=== PATIENT | male | born 1930 | race Two or more races ===

== ENCOUNTER 2017-03-14 21:15 | Inpatient (IN) | payer MEDICARE ==
[~2017-03-14] VITALS: Ht 172.7 cm; Wt 75.7 kg
--- NOTE | 2017-03-14 21:00 | NUR ---
ADMITTED THIS 86 YEARS OLD MALE FROM [facility] PATIENT WAS PLACE ON 5150 HOLD DUE TO GRAVELY DISABLE, CONFUSED , UNABLE TO TAKE CARE FOR HIMSELF. RICARDO ANY PAIN OR DISCOMFORT AT THIS TIME REFUSED TO SIGN THE CONSENT PAPER, ADVISEMENT EXPLAIN AND GIVE TO THE PATIENT WITH HOSPITAL HAND BOOK SKIN IS INTACT UNABLE TO CONTACT THE FAMILY MEMBER TRY TO CALL X 3 NO ANSWER MACHINE NO BODY TALENT ACQUISITION COORDINATOR THE PHONE. WILL CONTINUES TO MONITOR THE PATIENT FOR SAFETY AND FALL PRECAUTIONS.
[2017-03-14] MEDS ORDERED: LORAZEPAM 0.5 MG TABLET PO PRN (22:00)
[2017-03-14] MEDS ORDERED: ACETAMINOPHEN 325 MG TABLET PO PRN (22:00)
[2017-03-14] MEDS ORDERED: MAG HYDROX/AL HYDROX/SIMETH 30 ML UDC PO PRN (22:00)
[2017-03-14] MEDS ORDERED: ZOLPIDEM TARTRATE 5 MG TABLET PO PRN (22:00)
[2017-03-14] MEDS ORDERED: MAGNESIUM HYDROXIDE 30 ML UDC PO PRN (22:00)
[2017-03-14] MEDS ORDERED: ALBUTEROL FS 2.5 MG/0.5 ML VIAL.NEB NEB STA (23:16)
[2017-03-15] MEDS: ALBUTEROL FS 2.5 MG/0.5 ML VIAL.NEB NEB SCH ×4 (01:35→20:14)
[2017-03-15] MEDS ORDERED: Z GUARD REMEDY 2 OZ OINT TP SCH (07:30)
[2017-03-15 07:59] LABS: ALBUMIN 3.1 g/dL (3.4-5.0); BILIRUBIN,TOTAL 1.1 mg/dL (0.2-1.0); CALCIUM, SERUM 8.8 mg/dL (8.5-10.1); CREATININE 2.2 mg/dL (0.6-1.3); POTASSIUM 3.2 mmol/L (3.5-5.1); TOTAL PROTEIN, SERUM 7.2 g/dL (6.4-8.2)
[2017-03-15 08:00] VITALS: BP 143/95
[2017-03-15] MEDS ORDERED: POTASSIUM CHLORIDE 20 MEQ TAB.PRT.SR PO ONE (12:30)
[2017-03-15 16:00] VITALS: BP 133/93
--- NOTE | 2017-03-15 18:00 | NUR ---
[facility]/RN JAYNE NEAL NOTIFIED REGARDING RIGHT EYE DISCHARGE AND CRUST SURROUNDING EYE, AWAITING RESPONSE.
[2017-03-15] MEDS: TOBRAMYCIN/DEXAMETH OPHTH DORPS 2.5 ML BOTTLE EACHEYE SCH ×2 (19:00→21:15)
[2017-03-15 20:00] VITALS: BP 145/85
[2017-03-15] MEDS ORDERED: QUETIAPINE FUMARATE 25 MG TABLET PO SCH (22:00)
[2017-03-16] MEDS: ALBUTEROL FS 2.5 MG/0.5 ML VIAL.NEB NEB SCH ×3 (01:30→13:03)
[2017-03-16] MEDS: TOBRAMYCIN/DEXAMETH OPHTH DORPS 2.5 ML BOTTLE EACHEYE SCH ×3 (03:00→11:41)
[2017-03-16 08:00] VITALS: BP 148/77
[2017-03-16 09:22] LABS: BASOPHILS # (AUTO) 0.1 /CMM (0.0-0.2); BASOPHILS % (AUTO) 0.5 % (0.0-2.0); EOSINOPHILS # (AUTO) 0.1 /CMM (0.0-0.7); EOSINOPHILS % (AUTO) 0.9 % (0.0-6.0); HEMATOCRIT 39 % (39-51); LYMPHOCYTES % (AUTO) 9.2 % (20.0-44.0); MEAN CORPUSCULAR HEMOGLOBIN 31 PG (26.0-33.0); MEAN CORPUSCULAR HGB CONC 33 g/dl (31.0-36.0); MEAN CORPUSCULAR VOLUME 92 fL (80-96); MONOCYTES # (AUTO) 0.6 /CMM (0.1-1.30); MONOCYTES % (AUTO) 5.5 % (2.0-12.0); NEUTROPHILS % (AUTO) 83.9 % (43.0-81.0); PLATELET COUNT (AUTO) 194 /CMM (150-450); RDW COEFFICIENT OF VARIATION 14.1 (11.5-15.0); RED BLOOD CELL COUNT(AUTO) 4.25 MIL/uL (4.5-6.0); WHITE BLOOD COUNT (AUTO) 10.8 K/uL (4.3-11.0)
[2017-03-16 09:29] LABS: CALCIUM, SERUM 8.8 mg/dL (8.5-10.1); CREATININE 2.3 mg/dL (0.6-1.3); MAGNESIUM 2.4 mg/dL (1.8-2.4); PHOSPHORUS 3.5 mg/dL (2.5-4.9); POTASSIUM 3.5 mmol/L (3.5-5.1)
--- NOTE | 2017-03-16 10:43 | NUR ---
[facility] RN: RECEIVED A CALL FROM RADIOLOGIST DR. 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 DR. ALFARO AND DR. FENG PAGED. DR. FENG CALLED BACK WITH NO NEW ORDERS AT THIS TIME, SHE WILL REVIEW THE CT SCAN. PATIENT IS CURRENTLY IN THE RADIOLOGY DEPARTMENT. Addendum: 03/16/17 at 1101 by LEE KIM RN REPORTING RADIOLOGIST IS ALEX VERNON MD
--- NOTE | 2017-03-16 10:43 | NUR ---
[facility] RN: PER DR. FENG, SHE WILL TALK TO DR. ALFARO
[2017-03-16] MEDS ORDERED: HYDROCODONE/APAP 5/325MG 1 EACH TABLET PO PRN (14:00)
[2017-03-16] MEDS ORDERED: TOBRAMYCIN/DEXAMETH OPHTH DORPS 2.5 ML BOTTLE EACHEYE SCH (14:00)
[2017-03-16] MEDS ORDERED: AMLODIPINE BESYLATE 2.5 MG TABLET PO SCH (14:00)
[2017-03-16] MEDS ORDERED: ASPIRIN 81 MG TAB.CHEW PO SCH (14:00)
[2017-03-16] MEDS ORDERED: Potassium Chloride 20 MEQ in IV D5/0.45 NACL 1,000 ML IV PRN (14:00)
--- NOTE | 2017-03-16 14:29 | NUR ---
Initial discharge plan: Pt. lives in a warehouse located at [address] [place] [id number]. Per friend Santosh [phone] pt. should not return back as he lives in very poor conditions and should be placed in a facility. ERIBERTO will work on finding an appropriate facility in case patient agrees to be discharged there. ERIBERTO spoke with [facility] ERIBERTO Morel [phone], who came to visit the patient as there is an open case. Pt's actual psychiatric social worker supervisor from [facility] is Alejandro, . ERIBERTO will contact Alejandro when time for discharge. Pt. will help form safe and proper discharge.
--- NOTE | 2017-03-16 14:32 | NUR ---
Pt. was referred to [facility] ([facility]) [address] [place] [address] will follow up
--- NOTE | 2017-03-16 15:00 | NUR ---
[facility] RN: PATIENT DISCHARGED TO [facility]- PER ORDER. PATIENT REMAINS ON [address] CHANEY ORDER. PERSONAL BELONGINGS RETURNED TO THE PATIENT. THE RECEIPT SLIP FROM [employer] DEPOSIT SENT TO [facility] WITH THE COPY OF THE PROPERTY MANAGEMENT FORM. THE ORIGINAL 5150 HOLD AND 14 DAY HOLD ATTACHED WITH THE DISCHARGE PAPERWORK. REPORT GIVEN TO CECIL RON.
--- NOTE | 2017-03-16 15:32 | NUR ---
Pt. was also referred to [address], [facility] [address]; [phone] .
[2017-03-16] MEDS ORDERED: ATOR40TA PO (20:14)
[2017-03-16] MEDS ORDERED: ASPI81TA2 PO (20:14)
[2017-03-16] MEDS ORDERED: TOBR5DRO12 EACHEYE (20:14)
[2017-03-16] MEDS ORDERED: QUET25TA PO (20:14)
[2017-03-16] MEDS ORDERED: LORA-258 PO (20:14)
[2017-03-16] MEDS ORDERED: ALBU2.5V13 NEB (20:14)
[2017-03-16] MEDS ORDERED: AMLO2.5T PO (20:14)
[2017-03-16] MEDS ORDERED: MAGN400O6 GT (20:14)
[2017-03-16] MEDS ORDERED: DONE5TAB3 PO (20:14)
[2017-03-16] MEDS ORDERED: DONEPEZIL 5 MG TABLET PO SCH (22:00)
[2017-03-16] MEDS ORDERED: ATORVASTATIN 40 MG TABLET PO SCH (22:00)
[2017-03-17 09:48] LABS: CANNABINOID, URINE NEGATIVE (NEGATIVE); PHENCYCLIDINE SCREEN,URINE NEGATIVE (NEGATIVE)
[2017-03-17 12:13] LABS: APPEARANCE,URINE SL CLOUDY (CLEAR); BILIRUBIN,URINE NEGATIVE (NEGATIVE); BLOOD, URINE 2+ Ery/uL (NEGATIVE); COLOR,URINE YELLOW (YELLOW); KETONES,URINE NEGATIVE (NEGATIVE); LEUKOCYTE ESTERASE ,URINE 3+ (NEGATIVE); NITRITE, URINE NEGATIVE (NEGATIVE); PROTEIN,URINE TRACE mg/dl (NEGATIVE); UGLUCOSE NEGATIVE (NEGATIVE); UROBILINOGEN,URINE 0.2 EU/dL (0.2)
[2017-03-17 12:57] LABS: ADD URINE CULTURE YES; BACTERIA,URINE 4+ /HPF (None Seen); SQUAMOUS EPITHELIAL CELL,UR 0-2 /HPF (None Seen); WBC,URINE 21-50 /HPF (0-3)
== END 2017-03-16 14:59 | disposition short-term general hospital (02) | DRG 885 ==
LOC: GPS 21:15
PROVIDERS: ADMIT Psychiatry & Neurology Psychiatry; ATTEND Contractor
DX: F29 Unspecified psychosis not due to a substance or known physiological condition (principal); F02.81 Dementia in other diseases classified elsewhere, unspecified severity, with behavioral disturbance; N17.0 Acute kidney failure with tubular necrosis; N18.9 Chronic kidney disease, unspecified; G93.40 Encephalopathy, unspecified; E87.0 Hyperosmolality and hypernatremia; E87.6 Hypokalemia; J44.9 Chronic obstructive pulmonary disease, unspecified; Z73.6 Limitation of activities due to disability; H10.9 Unspecified conjunctivitis; H02.401 Unspecified ptosis of right eyelid; I12.9 Hypertensive chronic kidney disease with stage 1 through stage 4 chronic kidney disease, or unspecified chronic kidney disease; G30.9 Alzheimer's disease, unspecified; Z87.891 Personal history of nicotine dependence
CPT/HCPCS: 36415; 70450-TC; 80048-TC; 80053-TC; 80061-TC; 80305; 81000-TC; 83735-TC; 84100-TC; 84443-TC; 85025-TC; 87081-TC; 87086-TC; 87186-TC; 97001-TC

== ENCOUNTER 2017-03-16 15:10 | Inpatient (IN) | payer MEDICARE ==
[~2017-03-16] VITALS: Ht 175.3 cm; Wt 68.0 kg
--- NOTE | 2017-03-16 15:00 | NUR ---
FOUR CORNER STAYER MACHINE OPERATOR NOTES PATIENT ALERT AND ORIENTED X1, RECEIVED FROM NIKOLAI-PSYCH NURSE. NO SOB, DISTRESS OR PAIN NOTED. 1:[address], ALL PERSONAL BELONGINGS ACCOUNTED FOR. MD AWARE PATIENT IS ADMITTED. CONTINUING ORDERS. WILL CONTINUE TO MONITOR.
[2017-03-16 16:00] VITALS: BP 110/71
[2017-03-16] MEDS ORDERED: MAG HYDROX/AL HYDROX/SIMETH 30 ML UDC PO PRN (16:30)
[2017-03-16] MEDS ORDERED: ONDANSETRON HCL/PF 4 MG/2 ML VIAL IVP PRN (16:30)
[2017-03-16] MEDS ORDERED: HYDROCODONE/APAP 5/325MG 1 EACH TABLET PO PRN (16:30)
[2017-03-16] MEDS ORDERED: MAGNESIUM HYDROXIDE 30 ML UDC PO PRN ×2 (16:30→22:00)
[2017-03-16] MEDS ORDERED: ZOLPIDEM TARTRATE 5 MG TABLET PO PRN (16:30)
[2017-03-16] MEDS ORDERED: Potassium Chloride 20 MEQ in IV D5/ 0.9% NACL 1,000 ML IV PRN (16:30)
[2017-03-16] MEDS ORDERED: Z GUARD REMEDY 2 OZ OINT TP PRN (16:30)
[2017-03-16] MEDS ORDERED: ACETAMINOPHEN 325 MG TABLET PO PRN (16:30)
[2017-03-16] MEDS ORDERED: IV SET PRIMARY PUMP SET 1 EA INFUS.SET MC ONE (17:35)
--- NOTE | 2017-03-16 19:06 | NUR ---
RN PM NOTES PATIENT RESTING IN BED, TOLERATING IV FLUIDS WELL. NO COMPLAINTS OF PAIN, SOB OR DISTRESS. WILL ENDORSE TO NEXT SHIFT. PATIENT IN STABLE CONDITION WITH GIRLFRIEND AT BEDSIDE.
[2017-03-16] MEDS: ALBUTEROL FS 2.5 MG/0.5 ML VIAL.NEB NEB SCH ×2 (19:30→21:52)
--- NOTE | 2017-03-16 19:40 | NUR ---
MS RN NOTES RECEIVED PT IN BED, AWAKE , CONFUSED , WITH PERIODS OF AGITATION. SITTER AT BEDSIDE. PT IS VERBALLY RESPONSIVE. IV SITE ON RIGHT HAND INTACT AND PATENT, IVF INFUSING WELL. PT IS AMBULATORY WITH ASSISTANCE , DENIES ANY PAIN OR DISCOMFORT AT THIS TIME. SAFETY PRECAUTIONS OBSERVED. ALL NEEDS ATTENDED. CALL LIGHT WITHIN REACH . WILL CONTINUE TO MONITOR.
[2017-03-16 20:00] VITALS: BP 162/109
[2017-03-16] MEDS ORDERED: MAGN400O6 GT (20:14)
[2017-03-16] MEDS ORDERED: ATOR40TA PO (20:14)
[2017-03-16] MEDS ORDERED: ALBU2.5V13 NEB (20:14)
[2017-03-16] MEDS ORDERED: ASPI81TA2 PO (20:14)
[2017-03-16] MEDS ORDERED: LORA-258 PO (20:14)
[2017-03-16] MEDS ORDERED: DONE5TAB3 PO (20:14)
[2017-03-16] MEDS ORDERED: AMLO2.5T PO (20:14)
[2017-03-16] MEDS ORDERED: QUET25TA PO (20:14)
[2017-03-16] MEDS ORDERED: TOBR5DRO12 EACHEYE (20:14)
[2017-03-16] MEDS ORDERED: ENOXAPARIN SODIUM 40 MG/0.4 ML DISP.SYRIN SQ SCH (21:00)
[2017-03-16 22:00] VITALS: BP 142/98
[2017-03-16] MEDS: QUETIAPINE FUMARATE 25 MG TABLET PO SCH (22:53)
[2017-03-16] MEDS: DONEPEZIL 5 MG TABLET PO SCH (22:53)
[2017-03-16] MEDS: ATORVASTATIN 40 MG TABLET PO SCH (23:02)
[2017-03-16] MEDS: ENOXAPARIN SODIUM 30 MG/0.3 ML DISP.SYRIN SQ SCH (23:07)
[2017-03-16] MEDS ORDERED: TOBRAMYCIN OPHTH 5ML 5 ML BOTTLE ONE (23:11)
[2017-03-16] MEDS: TOBRAMYCIN OPHTH 5ML 5 ML BOTTLE EACHEYE SCH (23:19)
[2017-03-17] MEDS: ALBUTEROL FS 2.5 MG/0.5 ML VIAL.NEB NEB SCH ×4 (01:30→19:16)
[2017-03-17] MEDS: TOBRAMYCIN OPHTH 5ML 5 ML BOTTLE EACHEYE SCH ×6 (02:53→21:29)
[2017-03-17 06:40] LABS: BASOPHILS % (AUTO) 0.2 % (0.0-2.0); EOSINOPHILS # (AUTO) 0.1 /CMM (0.0-0.7); EOSINOPHILS % (AUTO) 0.8 % (0.0-6.0); HEMATOCRIT 36 % (39-51); HEMOGLOBIN 11.9 g/dL (13.5-17.5); LYMPHOCYTES % (AUTO) 14.2 % (20.0-44.0); MEAN CORPUSCULAR HEMOGLOBIN 31 PG (26.0-33.0); MEAN CORPUSCULAR HGB CONC 34 g/dl (31.0-36.0); MEAN CORPUSCULAR VOLUME 91 fL (80-96); MONOCYTES # (AUTO) 0.4 /CMM (0.1-1.30); MONOCYTES % (AUTO) 5.7 % (2.0-12.0); NEUTROPHILS # (AUTO) 5.5 /CMM (1.8-8.9); NEUTROPHILS % (AUTO) 79.1 % (43.0-81.0); PLATELET COUNT (AUTO) 188 /CMM (150-450); RDW COEFFICIENT OF VARIATION 14.9 (11.5-15.0); RED BLOOD CELL COUNT(AUTO) 3.92 MIL/uL (4.5-6.0)
--- NOTE | 2017-03-17 06:46 | NUR ---
MS RN NOTES PT SITTING UP IN BED, AWAKE , CONFUSED , WITH PERIODS OF AGITATION. SITTER AT BEDSIDE. PT IS VERBALLY RESPONSIVE. IV SITE ON LEFT HAND INTACT AND PATENT, IVF INFUSING WELL. PT IS AMBULATORY WITH ASSISTANCE , DENIES ANY PAIN OR DISCOMFORT AT THIS TIME. SAFETY PRECAUTIONS OBSERVED. ALL NEEDS ATTENDED. CALL LIGHT WITHIN REACH . WILL ENDORSE TO NEXT SHIFT FOR DOM.
[2017-03-17 07:09] LABS: CALCIUM, SERUM 8.4 mg/dL (8.5-10.1); MAGNESIUM 2.3 mg/dL (1.8-2.4); PHOSPHORUS 3.6 mg/dL (2.5-4.9); POTASSIUM 3.5 mmol/L (3.5-5.1)
--- NOTE | 2017-03-17 07:30 | NUR ---
MS RN NOTES RECEIVED PATIENT RESTING COMFORTABLY ON BED, ALERT AND ORIENTED X2 WITH CONFUSION NOTED. WITH O2 AT 2LPM VIA NC, NO S/S OF ANY RESPIRATORY DISTRESS OR DISCOMFORT NOTED. SITTER AT BEDSIDE. WILL CONTINUE TO MONITOR.
[2017-03-17 08:00] VITALS: BP 147/81
--- NOTE | 2017-03-17 08:00 | NUR ---
MS RN NOTES S/B DR. ASKEW WITH NEW ORDERS MADE AND CARRIED OUT.
[2017-03-17] MEDS: PANTOPRAZOLE 40 MG TABLET.DR PO SCH (09:06)
[2017-03-17] MEDS: ASPIRIN 81 MG TAB.CHEW PO SCH (09:06)
[2017-03-17] MEDS: AMLODIPINE BESYLATE 2.5 MG TABLET PO SCH (09:07)
--- NOTE | 2017-03-17 09:16 | NUR ---
TEXTED DR. VELIZ FOR MRI APPROVAL.
--- NOTE | 2017-03-17 09:26 | NUR ---
MRI ON HOLD TILL DR. VELIZ GIVES US AN OK.
--- NOTE | 2017-03-17 09:28 | NUR ---
OK TO DO MRI PER DR. VELIZ.
--- NOTE | 2017-03-17 09:28 | NUR ---
OK TO DO PER DR. VELIZ
--- NOTE | 2017-03-17 10:00 | NUR ---
MS RN NOTES PT FOR MRI BRAIN WITHOUT CONTRAST, HOWEVER PATIENT IS NOT RELIABLE TO ANSWER THE MRI CHECKLIST. CALLED THE PT'S PAIGE GUERIN BUT SHE DIDN'T ANSWER THE PHONE. DR. ASKEW MADE AWARE. WILL FOLLOW UP AGAIN TOMORROW.
--- NOTE | 2017-03-17 11:00 | NUR ---
MS RN NOTES S/B / KAYLYN IBRAHIM WITH NEW ORDERS MADE AND CARRIED OUT.
[2017-03-17] MEDS: FUROSEMIDE 40 MG/4 ML VIAL IV SCH ×2 (11:27→17:07)
--- NOTE | 2017-03-17 12:00 | NUR ---
MS RN NOTES PT NOTED TO BE AGITATED, AND LEADING TO SOB. ATIVAN 0.5 PRN GIVEN ORDERED. PT WAS ALSO S/B DR. UMANA WITH NEW ORDERS RECEIVED AND CARRIED OUT.
[2017-03-17 12:44] LABS: CREATININE, URINE 74.2 MG/DL (30.0-125.0); URINE TOTAL PROTEIN 54.3 mg/dL (0-11.9)
[2017-03-17] MEDS: LORAZEPAM 0.5 MG TABLET PO PRN (12:49)
[2017-03-17] MEDS ORDERED: QUETIAPINE FUMARATE 25 MG TABLET PO PRN (15:00)
[2017-03-17 16:00] VITALS: BP 132/84
--- NOTE | 2017-03-17 16:00 | NUR ---
MS RN NOTES PAIGE GUERIN CAME AND SHE FILLED UP THE MRI CHECKLIST.
[2017-03-17 16:59] VITALS: BP 132/84
[2017-03-17] MEDS: ATORVASTATIN 40 MG TABLET PO SCH (17:07)
[2017-03-17] MEDS: DONEPEZIL 5 MG TABLET PO SCH (17:07)
--- NOTE | 2017-03-17 19:00 | NUR ---
MS RN NOTES ALL NEEDS ATTENDED AND ANTICIPATED. ENDORSED TO INCOMING SHIFT FOR CONTINUITY OF CARE.
--- NOTE | 2017-03-17 19:40 | NUR ---
MS RN NOTE: PATIENT SITTING UP IN CHAIR, NO ACUTE DISTRESS NOTED. BREATHING EVEN AND UNLABORED, NO SOB NOTED. IV TO LEFT HAND IN PLACE. SITTER AT BEDSIDE. BED LOCKED AND IN LOWEST POSITION, CALL LIGHT IN REACH. WILL CONTINUE TO MONITOR.
[2017-03-17 20:00] VITALS: BP 127/69
[2017-03-17] MEDS: QUETIAPINE FUMARATE 25 MG TABLET PO SCH (21:29)
[2017-03-17] MEDS: ENOXAPARIN SODIUM 30 MG/0.3 ML DISP.SYRIN SQ SCH (21:34)
[2017-03-18] MEDS: ALBUTEROL FS 2.5 MG/0.5 ML VIAL.NEB NEB SCH ×4 (01:20→19:30)
[2017-03-18] MEDS: TOBRAMYCIN OPHTH 5ML 5 ML BOTTLE EACHEYE SCH ×5 (01:25→17:06)
--- NOTE | 2017-03-18 02:45 | NUR ---
MS RN NOTE: PATIENT SITTING UP IN CHAIR, DOES NOT WANT TO LAY DOWN IN BED, NO ACUTE DISTRESS NOTED . BREATHING EVEN AND UNLABORED, NO SOB NOTED. SITTER AT BEDSIDE. WILL CONTINUE TO MONITOR.
--- NOTE | 2017-03-18 06:15 | NUR ---
MS RN NOTE: PATIENT SITTING UP IN CHAIR, NO ACUTE DISTRESS NOTED. BREATHING EVEN AND UNLABORED, NO SOB NOTED. IV TO LEFT HAND IN PLACE. SITTER AT BEDSIDE. BED LOCKED AND IN LOWEST POSITION, CALL LIGHT IN REACH. WILL ENDORSE TO DAY NURSE TO CONTINUE WITH PLAN OF CARE.
[2017-03-18] MEDS: PANTOPRAZOLE 40 MG TABLET.DR PO SCH (07:03)
--- NOTE | 2017-03-18 07:30 | NUR ---
MS RN NOTE RECEIVED PATIENT SITTING UP IN CHAIR, AOX2, BREATHING EVEN AND UNLABORED, NO SOB OR RESPIRATORY DISTRESS NOTED. O2 AT 2LPM VIA NC, O2 SAT OF 95%. IV TO LEFT HAND IN PLACE. SITTER AT BEDSIDE. CALL LIGHT WITHIN REACH. WILL CONTINUE TO MONITOR.
[2017-03-18 08:00] VITALS: BP 141/94
[2017-03-18] MEDS: ASPIRIN 81 MG TAB.CHEW PO SCH (08:43)
[2017-03-18] MEDS: FUROSEMIDE 40 MG/4 ML VIAL IV SCH (08:43)
[2017-03-18] MEDS: AMLODIPINE BESYLATE 2.5 MG TABLET PO SCH (08:44)
[2017-03-18 08:46] LABS: BASOPHILS % (AUTO) 0.3 % (0.0-2.0); EOSINOPHILS # (AUTO) 0.1 /CMM (0.0-0.7); EOSINOPHILS % (AUTO) 1.9 % (0.0-6.0); HEMATOCRIT 36 % (39-51); HEMOGLOBIN 11.7 g/dL (13.5-17.5); LYMPHOCYTES # (AUTO) 1.1 /CMM (0.8-4.8); LYMPHOCYTES % (AUTO) 13.7 % (20.0-44.0); MEAN CORPUSCULAR HEMOGLOBIN 30 PG (26.0-33.0); MEAN CORPUSCULAR HGB CONC 33 g/dl (31.0-36.0); MEAN CORPUSCULAR VOLUME 92 fL (80-96); MONOCYTES # (AUTO) 0.4 /CMM (0.1-1.30); MONOCYTES % (AUTO) 5.5 % (2.0-12.0); NEUTROPHILS # (AUTO) 6.1 /CMM (1.8-8.9); NEUTROPHILS % (AUTO) 78.6 % (43.0-81.0); PLATELET COUNT (AUTO) 187 /CMM (150-450); RDW COEFFICIENT OF VARIATION 15.4 (11.5-15.0); RED BLOOD CELL COUNT(AUTO) 3.94 MIL/uL (4.5-6.0); WHITE BLOOD COUNT (AUTO) 7.7 K/uL (4.3-11.0)
[2017-03-18 09:05] LABS: ALBUMIN 2.7 g/dL (3.4-5.0); BILIRUBIN,TOTAL 0.8 mg/dL (0.2-1.0); CALCIUM, SERUM 8.3 mg/dL (8.5-10.1); CREATININE 2.3 mg/dL (0.6-1.3); MAGNESIUM 2.2 mg/dL (1.8-2.4); PHOSPHORUS 4.2 mg/dL (2.5-4.9); POTASSIUM 3.8 mmol/L (3.5-5.1); TOTAL PROTEIN, SERUM 6.7 g/dL (6.4-8.2)
--- NOTE | 2017-03-18 10:00 | NUR ---
MS RN NOTES S/B DR. ASKEW WITH NO NEW ORDERS MADE. TO CONTINUE SAME POC AND FOR MRI BRAIN WITHOUT CONTRAST ON SUNDAY.
[2017-03-18] MEDS: CARVEDILOL 3.125 MG TABLET PO SCH ×2 (10:15→21:25)
[2017-03-18] MEDS ORDERED: IV 1/2NS 1000 ML 1,000 ML IV PRN (11:02)
[2017-03-18 16:00] VITALS: BP 131/84
[2017-03-18] MEDS: DONEPEZIL 5 MG TABLET PO SCH (17:06)
[2017-03-18] MEDS: ATORVASTATIN 40 MG TABLET PO SCH (17:06)
--- NOTE | 2017-03-18 18:20 | NUR ---
MS RN NOTES NEEDS ALL ATTENDED AND ANTICIPATED. ENDORSED TO INCOMING SHIFT FOR CONTINUITY OF CARE.
--- NOTE | 2017-03-18 19:30 | NUR ---
RN NOTES RECEIVED PT AWAKE ON BED, A/OX2, SITTER AT BEDSIDE, BRP WITH ASSIST, NO PAIN, NO SOB, CALL LIGHT WITHIN REACH, SIDERAILS UPX2 CONTINUE TO MONITOR
[2017-03-18 20:00] VITALS: BP 136/99
--- NOTE | 2017-03-18 21:00 | NUR ---
RN NOTES DUE MEDS GIVEN- PT. TOLERATED FAIRLY
[2017-03-18] MEDS: QUETIAPINE FUMARATE 25 MG TABLET PO SCH (21:24)
[2017-03-18] MEDS: ENOXAPARIN SODIUM 30 MG/0.3 ML DISP.SYRIN SQ SCH (21:28)
[2017-03-19] MEDS: ALBUTEROL FS 2.5 MG/0.5 ML VIAL.NEB NEB SCH ×4 (01:38→20:05)
--- NOTE | 2017-03-19 07:04 | NUR ---
RN NOTES AWAKE, MORNING CARE RENDERED, SITTER AT BEDSIDE, PT. NEEDS ATTENDED. ENDORSED TO DAYSHIFT NURSE FOR CONTINUITY OF CARE
--- NOTE | 2017-03-19 07:30 | NUR ---
MS/RN Patient received Patient received from assistant shift supervisor, remains on hold, sitter at bedside. Calm and cooperative with plan of care. Will continue to monitor and ensure safety.
[2017-03-19] MEDS: ASPIRIN 81 MG TAB.CHEW PO SCH (07:57)
[2017-03-19] MEDS: PANTOPRAZOLE 40 MG TABLET.DR PO SCH (07:57)
[2017-03-19] MEDS: CARVEDILOL 3.125 MG TABLET PO SCH ×2 (07:58→20:49)
[2017-03-19] MEDS: AMLODIPINE BESYLATE 2.5 MG TABLET PO SCH (07:58)
[2017-03-19 08:00] VITALS: BP 139/94
--- NOTE | 2017-03-19 09:00 | NUR ---
MS/RN Medications Morning medications given with apple sauce, no problems swallowing.
--- NOTE | 2017-03-19 09:57 | NUR ---
MS/RN S/B Dr Salter Seen by Dr Salter - labs ordered for tomorrow.
--- NOTE | 2017-03-19 11:00 | NUR ---
MS/RN S/B Dr Cruz Seen by Dr Cruz - to continue with current plan of care.
[2017-03-19] MEDS: FUROSEMIDE 40 MG TABLET PO SCH (11:54)
--- NOTE | 2017-03-19 13:00 | NUR ---
MS/RN Patient hearing Patient hearing at bedside, 14 day hold upheld.
[2017-03-19 16:00] VITALS: BP 142/83
--- NOTE | 2017-03-19 16:13 | NUR ---
MS/RN S/B Dr Wilkins Seen by Dr Wilkins - continue with current plan of care, labs ordered for tomorrow.
[2017-03-19] MEDS: ATORVASTATIN 40 MG TABLET PO SCH (16:52)
[2017-03-19] MEDS: DONEPEZIL 5 MG TABLET PO SCH (16:52)
[2017-03-19] MEDS: LORAZEPAM 0.5 MG TABLET PO PRN (16:52)
--- NOTE | 2017-03-19 18:14 | NUR ---
MS/RN End note No changes at this time. Sitter remains at bedside as continues on hold. Will endorse to song plugger.
--- NOTE | 2017-03-19 19:40 | NUR ---
MS RN NOTE: PATIENT RESTING IN BED, NO ACUTE DISTRESS NOTED. BREATHING EVEN AND UNLABORED, NO SOB NOTED. IV TO LEFT HAND IN PLACE. SITTER AT BEDSIDE. BED LOCKED AND IN LOWEST POSITION, CALL LIGHT IN REACH. WILL CONTINUE TO MONITOR.
[2017-03-19 20:00] VITALS: BP 141/98
[2017-03-19] MEDS: ENOXAPARIN SODIUM 30 MG/0.3 ML DISP.SYRIN SQ SCH (20:49)
[2017-03-19] MEDS: QUETIAPINE FUMARATE 25 MG TABLET PO SCH (21:00)
[2017-03-20] MEDS: ALBUTEROL FS 2.5 MG/0.5 ML VIAL.NEB NEB SCH ×4 (01:30→20:06)
[2017-03-20] MEDS: LORAZEPAM 0.5 MG TABLET PO PRN (02:36)
--- NOTE | 2017-03-20 02:45 | NUR ---
MS RN NOTE: PATIENT UNABLE TO SLEEP AND TRYING TO GET OUT OF BED, ATIVAN 0.5MG ORAL GIVEN PER MD ORDER. SITTER AT BEDSIDE, WILL CONTINUE TO MONITOR.
[2017-03-20 06:28] LABS: HEMATOCRIT 36 % (39-51); LYMPHOCYTES # (AUTO) 0.1 /CMM (0.8-4.8); LYMPHOCYTES % (AUTO) 0.8 % (20.0-44.0); MEAN CORPUSCULAR HEMOGLOBIN 30 PG (26.0-33.0); MEAN CORPUSCULAR HGB CONC 34 g/dl (31.0-36.0); MEAN CORPUSCULAR VOLUME 90 fL (80-96); MONOCYTES # (AUTO) 0.2 /CMM (0.1-1.30); MONOCYTES % (AUTO) 1.4 % (2.0-12.0); NEUTROPHILS # (AUTO) 11.1 /CMM (1.8-8.9); NEUTROPHILS % (AUTO) 97.8 % (43.0-81.0); PLATELET COUNT (AUTO) 157 /CMM (150-450); RDW COEFFICIENT OF VARIATION 15.1 (11.5-15.0); RED BLOOD CELL COUNT(AUTO) 3.95 MIL/uL (4.5-6.0); WHITE BLOOD COUNT (AUTO) 11.3 K/uL (4.3-11.0)
[2017-03-20 06:40] LABS: CALCIUM, SERUM 8.2 mg/dL (8.5-10.1); CREATININE 2.5 mg/dL (0.6-1.3); MAGNESIUM 1.8 mg/dL (1.8-2.4); PHOSPHORUS 3.6 mg/dL (2.5-4.9); POTASSIUM 3.5 mmol/L (3.5-5.1)
[2017-03-20] MEDS: PANTOPRAZOLE 40 MG TABLET.DR PO SCH (06:47)
[2017-03-20 07:15] LABS: VIT D, 25-HYDROXY 27.2 ng/mL (30.0-100.0)
--- NOTE | 2017-03-20 07:30 | NUR ---
MS/RN Patient received Patient received from assembler 1st shift. Sleeping at this time, was given ativan prior to start of shift. Sitter at bedside as remains in place. Bed in low setting, side rails X3 in upright position, will continue to monitor and ensure safety.
[2017-03-20 08:00] VITALS: BP 100/60
[2017-03-20] MEDS: AMLODIPINE BESYLATE 2.5 MG TABLET PO SCH (08:25)
[2017-03-20] MEDS: ASPIRIN 81 MG TAB.CHEW PO SCH (08:25)
[2017-03-20] MEDS: CARVEDILOL 3.125 MG TABLET PO SCH ×2 (08:26→21:13)
[2017-03-20] MEDS: FUROSEMIDE 40 MG TABLET PO SCH (08:26)
--- NOTE | 2017-03-20 09:16 | NUR ---
MS/security supervisor Morning blood pressure medication held as bp 100/60. Will recheck later and administer if needed.
--- NOTE | 2017-03-20 09:45 | NUR ---
MS/RN S/B Dr Cuadra Seen by Dr Cuadra - chest x-ray ordered, if clear, patient may be medically cleared for transfer back to [facility] tomorrow.
--- NOTE | 2017-03-20 10:30 | NUR ---
MS/RN S/B Dr Cruz Seen by Dr Cruz - stated that patient will not be accepted back to [facility] unless MRI brain is completed and stroke is ruled out. Spoke with scientific technical writer, was told that they were unable to complete test as patient is unable to complete checklist and no family are listed on facesheet to call.
[2017-03-20 11:15] LABS: *SPE A/G RATIO 0.9 (0.7-1.7); *SPE ALBUMIN 2.9 g/dL (2.9-4.4); *SPE ALPHA-1-GLOBULIN 0.3 g/dL (0.0-0.4); *SPE ALPHA-2-GLOBULIN 0.9 g/dL (0.4-1.0); *SPE BETA GLOBULIN 0.8 g/dL (0.7-1.3); *SPE GLOBULIN, TOTAL 3.2 g/dL (2.2-3.9); *SPE M-SPIKE Not Observed g/dL (Not Observed); *SPE PROTEIN TOTAL 6.1 g/dL (6.0-8.5); *SPEGAMMA GLOBULIN 1.2 g/dL (0.4-1.8)
[2017-03-20 14:25] LABS: PTH, INTACT 57 pg/mL (15-65)
[2017-03-20 15:56] VITALS: BP 137/83
[2017-03-20] MEDS: ATORVASTATIN 40 MG TABLET PO SCH (16:46)
[2017-03-20] MEDS: DONEPEZIL 5 MG TABLET PO SCH (16:46)
--- NOTE | 2017-03-20 17:58 | NUR ---
MS/RN Repositioning Patient has been encouraged and assisted to turn and reposition throughout the shift.
--- NOTE | 2017-03-20 18:27 | NUR ---
MS/RN End note No changes at this time, patient has remained calm throughout shift. Compliant with taking all medications. Will endorse to shift production supervisor.
[2017-03-20 20:00] VITALS: BP 134/92
[2017-03-20] MEDS: QUETIAPINE FUMARATE 25 MG TABLET PO SCH (21:13)
[2017-03-20] MEDS: ENOXAPARIN SODIUM 30 MG/0.3 ML DISP.SYRIN SQ SCH (21:15)
[2017-03-21] MEDS: ALBUTEROL FS 2.5 MG/0.5 ML VIAL.NEB NEB SCH ×3 (00:53→13:06)
--- NOTE | 2017-03-21 02:00 | NUR ---
MS RN NOTE: PATIENT SLEEPING IN BED, NO ACUTE DISTRESS NOTED. BREATHING EVEN AND UNLABORED, NO SOB NOTED. SITTER AT BEDSIDE. BED LOCKED AND IN LOWEST POSITION, CALL LIGHT IN REACH. WILL CONTINUE TO MONITOR.
--- NOTE | 2017-03-21 06:00 | NUR ---
MS RN NOTE: PATIENT RESTING IN BED, NO ACUTE DISTRESS NOTED. BREATHING EVEN AND UNLABORED, NO SOB NOTED. IV TO LEFT HAND IN PLACE. SITTER AT BEDSIDE. BED LOCKED AND IN LOWEST POSITION, CALL LIGHT IN REACH. WILL ENDORSE TO DAY NURSE TO CONTINUE WITH PLAN OF CARE.
[2017-03-21 06:47] LABS: EOSINOPHILS % (AUTO) 0.2 % (0.0-6.0); HEMATOCRIT 36 % (39-51); HEMOGLOBIN 11.8 g/dL (13.5-17.5); LYMPHOCYTES # (AUTO) 0.9 /CMM (0.8-4.8); LYMPHOCYTES % (AUTO) 7.2 % (20.0-44.0); MEAN CORPUSCULAR HEMOGLOBIN 30 PG (26.0-33.0); MEAN CORPUSCULAR HGB CONC 33 g/dl (31.0-36.0); MEAN CORPUSCULAR VOLUME 91 fL (80-96); MONOCYTES # (AUTO) 0.6 /CMM (0.1-1.30); MONOCYTES % (AUTO) 4.6 % (2.0-12.0); NEUTROPHILS # (AUTO) 10.9 /CMM (1.8-8.9); PLATELET COUNT (AUTO) 148 /CMM (150-450); RDW COEFFICIENT OF VARIATION 15.4 (11.5-15.0); RED BLOOD CELL COUNT(AUTO) 3.93 MIL/uL (4.5-6.0); WHITE BLOOD COUNT (AUTO) 12.3 K/uL (4.3-11.0)
[2017-03-21] MEDS: PANTOPRAZOLE 40 MG TABLET.DR PO SCH (06:59)
[2017-03-21 07:01] LABS: CALCIUM, SERUM 8.4 mg/dL (8.5-10.1); CREATININE 2.5 mg/dL (0.6-1.3); POTASSIUM 3.4 mmol/L (3.5-5.1)
[2017-03-21 08:00] VITALS: BP 128/89
--- NOTE | 2017-03-21 08:00 | NUR ---
MS RN AM NOTES PATIENT RESTING IN BED, NO ACUTE DISTRESS NOTED. BREATHING EVEN AND UNLABORED, NO SOB NOTED. IV TO LEFT HAND IN PLACE. SITTER AT BEDSIDE. BED LOCKED AND IN LOWEST POSITION, CALL LIGHT WITHIN REACH. SEEN BY DR CORTES WITH ORDERS TO BE D/C TO [facility].PT WAS CLEARED BY NEURO.DR CHANEY CALLED AND STATED THAT PT CAN BE DC HOME BUT NOT TO [facility] SINCE MRI PROCEDURE WASN'T DONE TO R/O STROKE.NO CTA PROCEDURE WAS DONE EITHER.CALLED JULIO CÉSAR AND MADE AWARE.JULIO CÉSAR WILL LET ME KNOW IF PT WILL BE D/C TO [facility].
[2017-03-21] MEDS: ASPIRIN 81 MG TAB.CHEW PO SCH (08:31)
[2017-03-21] MEDS: CARVEDILOL 3.125 MG TABLET PO SCH (08:31)
[2017-03-21] MEDS ORDERED: POTASSIUM CHLORIDE 10 MEQ TABLET.SA PO ONE (11:00)
[2017-03-21 11:18] LABS: CALCITRIOL VIT D,1, 25 DIHYDRO 16.6 pg/mL (19.9-79.3)
[2017-03-21 16:00] VITALS: BP 118/77
--- NOTE | 2017-03-21 16:35 | NUR ---
REPORT,BELONGINGS AND RX GIVEN TO [facility] RNLANEY.WILL DISCHARGE PT AFTER DINNER.
[2017-03-21] MEDS: ATORVASTATIN 40 MG TABLET PO SCH (17:40)
[2017-03-21] MEDS: DONEPEZIL 5 MG TABLET PO SCH (17:40)
--- NOTE | 2017-03-21 17:55 | NUR ---
DISCHARGED PT TO [facility] WITH STABLE V/S.
[2017-03-21] MEDS ORDERED: HYDR-552 PO (20:55)
[2017-03-21] MEDS ORDERED: PANT40TA4 PO (20:55)
[2017-03-21] MEDS ORDERED: ENOX40DI SQ (20:55)
[2017-03-21] MEDS ORDERED: ALLA266C2 TP ×2 (21:01)
[2017-03-21] MEDS ORDERED: CARV6.25 PO (21:01)
== END 2017-03-21 18:00 | DRG 291 ==
LOC: MEDSG2 15:10
PROVIDERS: ADMIT Internal Medicine; ATTEND Psychiatry & Neurology Psychiatry
DX: I13.0 Hypertensive heart and chronic kidney disease with heart failure and stage 1 through stage 4 chronic kidney disease, or unspecified chronic kidney disease (principal); N17.0 Acute kidney failure with tubular necrosis; G93.40 Encephalopathy, unspecified; I50.23 Acute on chronic systolic (congestive) heart failure; E87.0 Hyperosmolality and hypernatremia; N18.9 Chronic kidney disease, unspecified; E78.5 Hyperlipidemia, unspecified; E86.0 Dehydration; F29 Unspecified psychosis not due to a substance or known physiological condition; G30.9 Alzheimer's disease, unspecified; F02.80 Dementia in other diseases classified elsewhere, unspecified severity, without behavioral disturbance, psychotic disturbance, mood disturbance, and anxiety; Z87.891 Personal history of nicotine dependence; H10.9 Unspecified conjunctivitis; J44.9 Chronic obstructive pulmonary disease, unspecified; T50.2X5A Adverse effect of carbonic-anhydrase inhibitors, benzothiadiazides and other diuretics, initial encounter; Y92.89 Other specified places as the place of occurrence of the external cause; Z86.73 Personal history of transient ischemic attack (TIA), and cerebral infarction without residual deficits
CPT/HCPCS: 36415; 71010-TC; 80048-TC; 80053-TC; 80061-TC; 82306; 82550-TC; 82570-TC; 82652; 83735-TC; 83880; 83970; 84100-TC; 84155; 84155-TC; 84165; 84300-TC; 85025-TC; 93307-TC; 93880-TC; 94799-TC; 97001-TC; J1650; J1940; J3480; J7042; Z7610

== ENCOUNTER 2017-03-21 19:59 | Inpatient (IN) | payer MEDICARE ==
[~2017-03-21] VITALS: Ht 175.3 cm; Wt 67.1 kg
--- NOTE | 2017-03-21 19:10 | NUR ---
[facility]PS RN NOTE: RECEIVED THE PATIENT ON THE BED, AWAKE, CONFUSED AND DISORIENTED, NO SOB, NO ACUTE DISTRESS NOTED, BREATHING EVEN AND UNLABORED, NO S/S OF PAIN AND DISCOMFORT, WILL CONTINUE THE ADMISSION PROCESS. WILL CONTINUE TO MONITOR [id number] FOR SAFETY
[~2017-03-21 19:59] MED LIST: ALBU2.5V13 NEB; AMLO2.5T PO; ASPI81TA2 PO; ATOR40TA PO; DONE5TAB3 PO; LORA-258 PO; MAGN400O6 GT; QUET25TA PO; TOBR5DRO12 EACHEYE
[2017-03-21] MEDS ORDERED: LORAZEPAM 0.5 MG TABLET PO PRN (20:30)
[2017-03-21] MEDS ORDERED: ACETAMINOPHEN 325 MG TABLET PO PRN (20:30)
[2017-03-21] MEDS ORDERED: MAG HYDROX/AL HYDROX/SIMETH 30 ML UDC PO PRN (20:30)
[2017-03-21] MEDS ORDERED: MAGNESIUM HYDROXIDE 30 ML UDC PO PRN (20:30)
[2017-03-21] MEDS ORDERED: PANT40TA4 PO (20:55)
[2017-03-21] MEDS ORDERED: HYDR-552 PO (20:55)
[2017-03-21] MEDS ORDERED: ENOX40DI SQ (20:55)
[2017-03-21] MEDS ORDERED: CARV6.25 PO (21:01)
[2017-03-21] MEDS ORDERED: ALLA266C2 TP ×2 (21:01)
--- NOTE | 2017-03-21 21:30 | NUR ---
ADMISSION NOTE: ADMITTED AN 86 Y/O MALE FROM [facility] ON 5250 HOLD GRAVELY DISABLED, BASED ON HOLD, PATIENT IS CONFUSED WITH NO PLAN OF SELF CARE. PATIENT ADMITTING DX. OF PSYCHOSIS AND MEDICAL DX. OF HYPERTENSION, CHF, ACUTE RENAL FAILURE, COPD AND DEMENTIA. UPON FACE TO FACE EVALUATION, PATIENT APPEARED CONFUSED, DISORIENTED, DISORGANIZED, GUARDED AND PARANOID. PATIENT PLACED ON 1:1 FOR SAFETY. PATIENT ON OXYGEN AT 2LPM VIA NASAL CANNULA. NO SOB, NO ACUTE DISTRESS, BREATHING EVEN AND UNLABORED, NO S/S OF PAIN AND DISCOMFORT, PATIENT HAS NKA, FULL CODE AND AMBULATORY WITH ASSISTANCE. SKIN ASSESSMENT DONE AND PICTURE TAKEN. BELONGINGS AND CONTRABAND INSPECTED AND COLLECTED BY THE PREVIOUS SHIFT AND PLACED TO SAFE. PATIENT UNABLE TO SIGN PAPER WORKS. NOTIFIED DR. CHANEY OF THE ADMISSION. PATIENT ASSESSED BY DR. REYNALDO WU AND RECONCILED THE MEDICATION PLUS ORDERED A DIETARY CONSULT NOTED AND CARRIED OUT. ALL NEEDS ATTENDED AND MET. WILL CONTINUE TO MONITOR
--- NOTE | 2017-03-21 21:45 | NUR ---
[facility]PS RN NOTE: NOTIFIED TRUONG JONES (RESPONSIBLE LIBERTARIAN) ABOUT THE ADMISSION
[2017-03-21] MEDS ORDERED: Z GUARD REMEDY 2 OZ OINT TP PRN (22:30)
[2017-03-21] MEDS ORDERED: HYDROCODONE/APAP 5/325MG 1 EACH TABLET PO PRN (22:30)
[2017-03-21] MEDS ORDERED: MAGNESIUM HYDROXIDE 30 ML UDC GT PRN (22:30)
[2017-03-21] MEDS: ZOLPIDEM TARTRATE 5 MG TABLET PO PRN (23:12)
[2017-03-21 23:37] VITALS: BP 139/91
[2017-03-22] MEDS ORDERED: ALBUTEROL FS 2.5 MG/0.5 ML VIAL.NEB NEB SCH
--- NOTE | 2017-03-22 02:17 | NUR ---
GPS RN NOTE: RT ATTEMPTED TO GIVE THE BREATHING TX, PATIENT APPEARED TO BE SLEEPY AND REFUSED BREATHING TX, RT ASSESSED THE O2 SAT = 99%. PATIENT ASLEEP IN BED, AROUSABLE, NO SOB, NO ACUTE DISTRESS, BREATHING EVEN AND UNLABORED, NO S/S OF PAIN AND DISCOMFORT, ON 1:1 SITTER. WILL CONTINUE TO MONITOR.
[2017-03-22 07:31] LABS: BASOPHILS % (AUTO) 0.1 % (0.0-2.0); EOSINOPHILS # (AUTO) 0.1 /CMM (0.0-0.7); EOSINOPHILS % (AUTO) 0.7 % (0.0-6.0); HEMATOCRIT 35 % (39-51); HEMOGLOBIN 11.4 g/dL (13.5-17.5); LYMPHOCYTES # (AUTO) 0.9 /CMM (0.8-4.8); LYMPHOCYTES % (AUTO) 11.5 % (20.0-44.0); MEAN CORPUSCULAR HEMOGLOBIN 30 PG (26.0-33.0); MEAN CORPUSCULAR HGB CONC 33 g/dl (31.0-36.0); MEAN CORPUSCULAR VOLUME 91 fL (80-96); MONOCYTES # (AUTO) 0.5 /CMM (0.1-1.30); MONOCYTES % (AUTO) 6.6 % (2.0-12.0); NEUTROPHILS # (AUTO) 6.5 /CMM (1.8-8.9); NEUTROPHILS % (AUTO) 81.1 % (43.0-81.0); PLATELET COUNT (AUTO) 149 /CMM (150-450); RDW COEFFICIENT OF VARIATION 15.3 (11.5-15.0); RED BLOOD CELL COUNT(AUTO) 3.81 MIL/uL (4.5-6.0)
[2017-03-22 07:55] LABS: ALBUMIN 2.4 g/dL (3.4-5.0); BILIRUBIN,TOTAL 0.8 mg/dL (0.2-1.0); CALCIUM, SERUM 8.2 mg/dL (8.5-10.1); CREATININE 2.5 mg/dL (0.6-1.3); POTASSIUM 3.7 mmol/L (3.5-5.1); TOTAL PROTEIN, SERUM 6.3 g/dL (6.4-8.2)
[2017-03-22 08:00] VITALS: BP 142/93
[2017-03-22] MEDS: CARVEDILOL 6.25 MG TABLET PO SCH ×2 (08:43→21:08)
[2017-03-22] MEDS: PANTOPRAZOLE 40 MG TABLET.DR PO SCH (08:43)
[2017-03-22] MEDS: ASPIRIN 81 MG TAB.CHEW PO SCH (08:43)
[2017-03-22] MEDS ORDERED: ENOXAPARIN SODIUM 40 MG/0.4 ML DISP.SYRIN SQ SCH (09:00)
[2017-03-22] MEDS: ENOXAPARIN SODIUM 30 MG/0.3 ML DISP.SYRIN SQ SCH (09:24)
[2017-03-22] MEDS: TOBRAMYCIN OPHTH 5ML 5 ML BOTTLE EACHEYE SCH ×2 (10:09→16:13)
[2017-03-22] MEDS: FUROSEMIDE 20 MG TABLET PO SCH (10:10)
[2017-03-22] MEDS: ALBUTEROL FS 2.5 MG/0.5 ML VIAL.NEB NEB SCH ×3 (13:08→20:35)
[2017-03-22] MEDS ORDERED: Z GUARD REMEDY 2 OZ OINT TP PRN (14:30)
[2017-03-22 16:00] VITALS: BP 139/80
[2017-03-22] MEDS: ATORVASTATIN 40 MG TABLET PO SCH (17:03)
[2017-03-22] MEDS: DONEPEZIL 5 MG TABLET PO SCH (17:03)
[2017-03-22 20:00] VITALS: BP 158/84
--- NOTE | 2017-03-22 20:15 | NUR ---
GPS/RN NOTE: AWAKE, ALERT, CONFUSED. ON CONTINUOUS O2 AT 2L VIA NC. NO APPARENT DISTRESS NOTED. HAS 1:1 SITTER FOR SAFETY.
[2017-03-22] MEDS: Z GUARD REMEDY 2 OZ OINT TP SCH (21:09)
[2017-03-22] MEDS: QUETIAPINE FUMARATE 25 MG TABLET PO SCH (21:32)
[2017-03-23] MEDS: ZOLPIDEM TARTRATE 5 MG TABLET PO PRN ×2 (00:23→21:19)
--- NOTE | 2017-03-23 00:24 | NUR ---
GPS/RN NOTE: PATIENT NOT SLEEPING, AMBIEN 5 MG TAB 1 PO GIVEN.
[2017-03-23] MEDS: ALBUTEROL FS 2.5 MG/0.5 ML VIAL.NEB NEB SCH ×4 (01:30→19:57)
[2017-03-23 06:59] LABS: CALCIUM, SERUM 8.4 mg/dL (8.5-10.1); CREATININE 2.2 mg/dL (0.6-1.3); MAGNESIUM 2.1 mg/dL (1.8-2.4); PHOSPHORUS 2.9 mg/dL (2.5-4.9); POTASSIUM 3.4 mmol/L (3.5-5.1)
[2017-03-23 08:00] VITALS: BP 137/90
[2017-03-23] MEDS: TOBRAMYCIN OPHTH 5ML 5 ML BOTTLE EACHEYE SCH ×2 (08:15→17:06)
[2017-03-23] MEDS: CARVEDILOL 6.25 MG TABLET PO SCH ×2 (08:18→21:19)
[2017-03-23] MEDS: ASPIRIN 81 MG TAB.CHEW PO SCH (08:18)
[2017-03-23] MEDS: PANTOPRAZOLE 40 MG TABLET.DR PO SCH (08:18)
[2017-03-23] MEDS: FUROSEMIDE 20 MG TABLET PO SCH (08:18)
[2017-03-23] MEDS: ENOXAPARIN SODIUM 30 MG/0.3 ML DISP.SYRIN SQ SCH (08:21)
[2017-03-23] MEDS: Z GUARD REMEDY 2 OZ OINT TP SCH ×2 (10:25→21:39)
[2017-03-23] MEDS ORDERED: POTASSIUM CHLORIDE 20 MEQ TAB.PRT.SR PO ONE (10:30)
--- NOTE | 2017-03-23 14:19 | NUR ---
Pt. was transferred to the medical floor on March 16, 2017 for acute renal failure and dehydration and was again transferred back to the psychiatric unit on March 21, 2017 for psychosis NOS. Pt. is doing much better and will be discharged to [address] [address]; [phone] on Sunday.
[2017-03-23 16:00] VITALS: BP 143/98
[2017-03-23] MEDS: ATORVASTATIN 40 MG TABLET PO SCH (17:06)
[2017-03-23] MEDS: DONEPEZIL 5 MG TABLET PO SCH (17:06)
--- NOTE | 2017-03-23 19:17 | NUR ---
GPS/RN NOTE: PATIENT RESTING, COMFORTABLE, NO ACUTE DISTRESS NOTED. ON 2L O2 VIA NC. HAS 1:1 SITTER.
[2017-03-23 20:00] VITALS: BP 148/104
[2017-03-23] MEDS: QUETIAPINE FUMARATE 25 MG TABLET PO SCH (21:19)
--- NOTE | 2017-03-23 21:21 | NUR ---
GPS/RN NOTE: AMBIEN 5 MG TAB 1 PO GIVEN FOR INSOMNIA
[2017-03-24] MEDS: ALBUTEROL FS 2.5 MG/0.5 ML VIAL.NEB NEB SCH ×5 (00:31→19:30)
[2017-03-24 08:33] VITALS: BP 179/99
[2017-03-24] MEDS: CARVEDILOL 6.25 MG TABLET PO SCH ×2 (08:41→21:34)
[2017-03-24] MEDS: PANTOPRAZOLE 40 MG TABLET.DR PO SCH (08:41)
[2017-03-24] MEDS: FUROSEMIDE 20 MG TABLET PO SCH (08:41)
[2017-03-24] MEDS: ASPIRIN 81 MG TAB.CHEW PO SCH (08:41)
[2017-03-24] MEDS: Z GUARD REMEDY 2 OZ OINT TP SCH ×2 (08:42→21:35)
[2017-03-24] MEDS: ENOXAPARIN SODIUM 30 MG/0.3 ML DISP.SYRIN SQ SCH (08:43)
[2017-03-24] MEDS: TOBRAMYCIN OPHTH 5ML 5 ML BOTTLE EACHEYE SCH ×2 (08:50→17:59)
[2017-03-24] MEDS ORDERED: FUROSEMIDE 20 MG/2 ML VIAL IV ONE ×2 (09:30→13:00)
[2017-03-24 09:55] LABS: CALCIUM, SERUM 8.7 mg/dL (8.5-10.1); CREATININE 2.2 mg/dL (0.6-1.3); POTASSIUM 4.2 mmol/L (3.5-5.1)
[2017-03-24] MEDS: AMLODIPINE BESYLATE 5 MG TABLET PO SCH (12:34)
[2017-03-24 16:04] VITALS: BP 150/104
[2017-03-24] MEDS: ATORVASTATIN 40 MG TABLET PO SCH (17:50)
[2017-03-24] MEDS: DONEPEZIL 5 MG TABLET PO SCH (17:50)
[2017-03-24 20:00] VITALS: BP 150/100
[2017-03-24] MEDS: QUETIAPINE FUMARATE 25 MG TABLET PO SCH (21:39)
[2017-03-24] MEDS: ZOLPIDEM TARTRATE 5 MG TABLET PO PRN (21:39)
[2017-03-25] MEDS: ALBUTEROL FS 2.5 MG/0.5 ML VIAL.NEB NEB SCH ×4 (01:25→20:05)
[2017-03-25 06:59] LABS: EOSINOPHILS % (AUTO) 0.2 % (0.0-6.0); HEMATOCRIT 40 % (39-51); LYMPHOCYTES % (AUTO) 8.5 % (20.0-44.0); MEAN CORPUSCULAR HEMOGLOBIN 30 PG (26.0-33.0); MEAN CORPUSCULAR HGB CONC 33 g/dl (31.0-36.0); MEAN CORPUSCULAR VOLUME 91 fL (80-96); MONOCYTES # (AUTO) 0.5 /CMM (0.1-1.30); MONOCYTES % (AUTO) 4.3 % (2.0-12.0); PLATELET COUNT (AUTO) 190 /CMM (150-450); RDW COEFFICIENT OF VARIATION 14.8 (11.5-15.0); RED BLOOD CELL COUNT(AUTO) 4.36 MIL/uL (4.5-6.0); WHITE BLOOD COUNT (AUTO) 11.5 K/uL (4.3-11.0)
[2017-03-25 07:05] LABS: CALCIUM, SERUM 8.6 mg/dL (8.5-10.1); CREATININE 2.4 mg/dL (0.6-1.3); MAGNESIUM 2.1 mg/dL (1.8-2.4); PHOSPHORUS 3.9 mg/dL (2.5-4.9); POTASSIUM 3.6 mmol/L (3.5-5.1)
[2017-03-25 08:00] VITALS: BP 149/63
[2017-03-25] MEDS ORDERED: POTASSIUM CHLORIDE 20 MEQ POWDER PACKET PO ONE (08:30)
[2017-03-25] MEDS ORDERED: LOSARTAN POTASSIUM 25 MG TABLET PO SCH (09:00)
[2017-03-25] MEDS: FUROSEMIDE 20 MG TABLET PO SCH (09:25)
[2017-03-25] MEDS: AMLODIPINE BESYLATE 5 MG TABLET PO SCH (09:25)
[2017-03-25] MEDS: ASPIRIN 81 MG TAB.CHEW PO SCH (09:25)
[2017-03-25] MEDS: CARVEDILOL 6.25 MG TABLET PO SCH ×3 (09:25→21:00)
[2017-03-25] MEDS: PANTOPRAZOLE 40 MG TABLET.DR PO SCH (09:25)
[2017-03-25] MEDS: ENOXAPARIN SODIUM 30 MG/0.3 ML DISP.SYRIN SQ SCH (09:26)
[2017-03-25] MEDS: Z GUARD REMEDY 2 OZ OINT TP SCH (09:27)
[2017-03-25] MEDS: TOBRAMYCIN OPHTH 5ML 5 ML BOTTLE EACHEYE SCH ×2 (10:33→16:49)
[2017-03-25 16:00] VITALS: BP 125/61
[2017-03-25] MEDS: DONEPEZIL 5 MG TABLET PO SCH (16:46)
[2017-03-25] MEDS: ATORVASTATIN 40 MG TABLET PO SCH (16:47)
[2017-03-25] MEDS: BOOST GLUCOSE CONTROL VANILLA 237 ML BOX PO SCH (16:48)
[2017-03-25 20:18] VITALS: BP 136/87
[2017-03-25] MEDS ORDERED: Z GUARD REMEDY 4 OZ OINT TP ONE (20:57)
[2017-03-25] MEDS: ZOLPIDEM TARTRATE 5 MG TABLET PO PRN (20:58)
[2017-03-25] MEDS: Z GUARD REMEDY 4 OZ OINT TP SCH (21:00)
[2017-03-25] MEDS: QUETIAPINE FUMARATE 25 MG TABLET PO SCH ×2 (22:00→22:12)
--- NOTE | 2017-03-25 22:08 | NUR ---
[facility]PS/RN NOTE: PATIENT REFUSED AMBIEN 5 MG TAB, OFFERED 2X FOR SLEEP. PATIENT STATED, " GO TO SLEEP.'
--- NOTE | 2017-03-25 22:11 | NUR ---
[facility]PS/RN NOTE: CARVEDILOL 6.25 MG TAB PO REFUSED, OFFERED 2X, STILL REFUSED, BP 136/87, PULSE 81. PATIENT STATED, " GO TO SLEEP."
--- NOTE | 2017-03-25 22:13 | NUR ---
[facility]PS/RN NOTE: QUETIAPINE 25 MG TAB 1 PO REFUSED, OFFERED 2X, STILL REFUSED. PATIENT STATED, " GO TO SLEEP."
[2017-03-26] MEDS: ALBUTEROL FS 2.5 MG/0.5 ML VIAL.NEB NEB SCH ×4 (01:30→19:51)
[2017-03-26 08:00] VITALS: BP 150/93
[2017-03-26] MEDS: ASPIRIN 81 MG TAB.CHEW PO SCH (08:29)
[2017-03-26] MEDS: CARVEDILOL 6.25 MG TABLET PO SCH ×2 (08:29→22:00)
[2017-03-26] MEDS: FUROSEMIDE 20 MG TABLET PO SCH (08:30)
[2017-03-26] MEDS: Z GUARD REMEDY 4 OZ OINT TP SCH ×2 (08:30→21:58)
[2017-03-26] MEDS: TOBRAMYCIN OPHTH 5ML 5 ML BOTTLE EACHEYE SCH ×2 (08:30→16:25)
[2017-03-26] MEDS: AMLODIPINE BESYLATE 5 MG TABLET PO SCH (08:30)
[2017-03-26] MEDS: PANTOPRAZOLE 40 MG TABLET.DR PO SCH (08:31)
[2017-03-26] MEDS: BOOST GLUCOSE CONTROL VANILLA 237 ML BOX PO SCH ×2 (08:32→16:25)
[2017-03-26] MEDS: ENOXAPARIN SODIUM 30 MG/0.3 ML DISP.SYRIN SQ SCH (08:33)
[2017-03-26 16:00] VITALS: BP 120/84
[2017-03-26] MEDS: ATORVASTATIN 40 MG TABLET PO SCH (16:24)
[2017-03-26] MEDS: DONEPEZIL 5 MG TABLET PO SCH (16:24)
[2017-03-26 18:57] LABS: CALCIUM, SERUM 8.2 mg/dL (8.5-10.1); CREATININE 2.2 mg/dL (0.6-1.3); POTASSIUM 3.3 mmol/L (3.5-5.1)
[2017-03-26 19:55] VITALS: BP 137/82
--- NOTE | 2017-03-26 21:00 | NUR ---
NOTIFY REYNALDO CHRISTOPHER PT. POTASSIUM LEVEL NEW ORDERS RECEIVED AND CARRIED OUT.
[2017-03-26] MEDS ORDERED: POTASSIUM CHLORIDE 20 MEQ TAB.PRT.SR PO ONE (21:30)
[2017-03-27] MEDS: ALBUTEROL FS 2.5 MG/0.5 ML VIAL.NEB NEB SCH ×3 (01:30→13:46)
[2017-03-27 07:18] LABS: BASOPHILS % (AUTO) 0.2 % (0.0-2.0); EOSINOPHILS # (AUTO) 0.1 /CMM (0.0-0.7); EOSINOPHILS % (AUTO) 1.4 % (0.0-6.0); HEMATOCRIT 37 % (39-51); HEMOGLOBIN 12.2 g/dL (13.5-17.5); LYMPHOCYTES # (AUTO) 1.3 /CMM (0.8-4.8); LYMPHOCYTES % (AUTO) 14.7 % (20.0-44.0); MEAN CORPUSCULAR HEMOGLOBIN 30 PG (26.0-33.0); MEAN CORPUSCULAR HGB CONC 33 g/dl (31.0-36.0); MEAN CORPUSCULAR VOLUME 91 fL (80-96); MONOCYTES # (AUTO) 0.4 /CMM (0.1-1.30); MONOCYTES % (AUTO) 4.6 % (2.0-12.0); NEUTROPHILS # (AUTO) 7.1 /CMM (1.8-8.9); NEUTROPHILS % (AUTO) 79.1 % (43.0-81.0); PLATELET COUNT (AUTO) 200 /CMM (150-450); RDW COEFFICIENT OF VARIATION 14.8 (11.5-15.0)
[2017-03-27] MEDS: PANTOPRAZOLE 40 MG TABLET.DR PO SCH (07:30)
[2017-03-27 07:34] LABS: CALCIUM, SERUM 8.2 mg/dL (8.5-10.1); PHOSPHORUS 2.8 mg/dL (2.5-4.9); POTASSIUM 3.4 mmol/L (3.5-5.1)
[2017-03-27 08:36] VITALS: BP 135/75
[2017-03-27] MEDS: ENOXAPARIN SODIUM 30 MG/0.3 ML DISP.SYRIN SQ SCH (08:37)
[2017-03-27] MEDS: ASPIRIN 81 MG TAB.CHEW PO SCH (08:38)
[2017-03-27] MEDS: AMLODIPINE BESYLATE 5 MG TABLET PO SCH (08:39)
[2017-03-27] MEDS: CARVEDILOL 6.25 MG TABLET PO SCH (08:40)
[2017-03-27] MEDS: Z GUARD REMEDY 4 OZ OINT TP SCH (08:40)
[2017-03-27] MEDS: TOBRAMYCIN OPHTH 5ML 5 ML BOTTLE EACHEYE SCH (08:41)
[2017-03-27] MEDS: BOOST GLUCOSE CONTROL VANILLA 237 ML BOX PO SCH (08:42)
[2017-03-27] MEDS ORDERED: POTASSIUM CHLORIDE 20 MEQ POWDER PACKET PO ONE ×2 (10:30→14:00)
[2017-03-27] MEDS ORDERED: DILTIAZEM HCL 30 MG TABLET PO ONE ×2 (10:30→14:30)
[2017-03-27] MEDS ORDERED: FUROSEMIDE 20 MG TABLET PO SCH (10:30)
[2017-03-27 14:12] VITALS: BP 133/77
--- NOTE | 2017-03-27 14:15 | NUR ---
EVENT MARKETING ASSISTANT NOTE:PATIENT ALERT ,VERBALLY RESPONSIVE ,DNIES SI/HI/AVH ,VS STABLE ,NO C/O PAIN AND KORTNEY SHAW AGRICULTURE TEACHER NOTIFIED OF DISCHARGE ,NO S/S OF ACUTE DISTRESS .REPORT GIVEN TO RN IN [facility] ALL BELONGINGS RETURNED TO PATIENT ,PATIENT DISCHARGED BY AMBULANCE.
--- NOTE | 2017-03-27 14:19 | NUR ---
Discharge note: Pt. discharged to [facility] [address] [facility] [address]; [phone] via [facility]. Pt's friend, Santosh [phone] was notified and agreed with the discharge plan. Pt. was also agreeable and was calm and cooperative. Pt. denies suicidal/homicidal ideations. Discharge paperwork has been signed and discharge instructions have been provided to the facility
== END 2017-03-27 15:07 | DRG 885 ==
LOC: GPS 19:59
PROVIDERS: ADMIT Psychiatry & Neurology Psychiatry
DX: F29 Unspecified psychosis not due to a substance or known physiological condition (principal); F02.81 Dementia in other diseases classified elsewhere, unspecified severity, with behavioral disturbance; N17.9 Acute kidney failure, unspecified; N18.9 Chronic kidney disease, unspecified; I50.23 Acute on chronic systolic (congestive) heart failure; G93.40 Encephalopathy, unspecified; I13.0 Hypertensive heart and chronic kidney disease with heart failure and stage 1 through stage 4 chronic kidney disease, or unspecified chronic kidney disease; E87.0 Hyperosmolality and hypernatremia; J44.9 Chronic obstructive pulmonary disease, unspecified; E78.5 Hyperlipidemia, unspecified; E86.0 Dehydration; E87.6 Hypokalemia; G30.9 Alzheimer's disease, unspecified; Z79.899 Other long term (current) drug therapy; Z86.73 Personal history of transient ischemic attack (TIA), and cerebral infarction without residual deficits; Z87.891 Personal history of nicotine dependence; Z73.6 Limitation of activities due to disability; E87.70 Fluid overload, unspecified; T50.1X5A Adverse effect of loop [high-ceiling] diuretics, initial encounter; Y92.89 Other specified places as the place of occurrence of the external cause
CPT/HCPCS: 36415; 71010-TC; 80048-TC; 80053-TC; 80061-TC; 83735-TC; 84100-TC; 85025-TC; 94799-TC; J1650; J1940

== ENCOUNTER 2017-11-07 14:52 | Emergency (ER) | payer MEDICARE, OTHER ==
[~2017-11-07] VITALS: Ht 172.7 cm; Wt 79.4 kg
[~2017-11-07 14:52] MED LIST changes: +ALLA266C2 TP; -AMLO2.5T PO; +ASPI-1169 PO; -ASPI81TA2 PO; +CARV6.25 PO; -DONE5TAB3 PO; +DONE5TAB7 PO; +ENOX40DI SQ; +HYDR-552 PO; +PANT40TA4 PO
--- NOTE | 2017-11-07 15:00 | NUR ---
BBPA FROM [facility]: FEVER, TYLENOL PO GIVEN @ 0900AM. PATIENT RECEIVED AAO2. APPEARS IN NO APPARENT DISTRESS. SKIN IS WARM TO TOUCH AND NON DIAPHORETIC. AFEBRILE. VSS
[2017-11-07] MEDS ORDERED: IV NS 0.9% 1,000 ML BAG IV ONE (16:00)
[2017-11-07 16:23] LABS: BASOPHILS % (AUTO) 0.6 % (0.0-2.0); EOSINOPHILS % (AUTO) 0.7 % (0.0-6.0); HEMATOCRIT 28 % (39-51); HEMOGLOBIN 9.6 g/dL (13.5-17.5); LYMPHOCYTES # (AUTO) 0.7 /CMM (0.8-4.8); LYMPHOCYTES % (AUTO) 12.7 % (20.0-44.0); MEAN CORPUSCULAR HEMOGLOBIN 33 PG (26.0-33.0); MEAN CORPUSCULAR HGB CONC 34 g/dl (31.0-36.0); MEAN CORPUSCULAR VOLUME 95 fL (80-96); MONOCYTES # (AUTO) 0.8 /CMM (0.1-1.30); MONOCYTES % (AUTO) 14.3 % (2.0-12.0); NEUTROPHILS # (AUTO) 3.8 /CMM (1.8-8.9); NEUTROPHILS % (AUTO) 71.7 % (43.0-81.0); PLATELET COUNT (AUTO) 153 /CMM (150-450); RDW COEFFICIENT OF VARIATION 12.4 (11.5-15.0); RED BLOOD CELL COUNT(AUTO) 2.94 MIL/uL (4.5-6.0); WHITE BLOOD COUNT (AUTO) 5.3 K/uL (4.3-11.0)
[2017-11-07 16:33] LABS: CALCIUM, SERUM 8.4 mg/dL (8.5-10.1); CARBON DIOXIDE 25 mmol/L (21-32); CHLORIDE 107 mmol/L (98-107); CREATININE 3.2 mg/dL (0.6-1.3); GLUCOSE 106 mg/dL (74-106); POTASSIUM 4.7 mmol/L (3.5-5.1); SODIUM SERUM 140 mmol/L (136-145); UREA NITROGEN, BLOOD 56 mg/dL (7-18)
[2017-11-07 16:37] LABS: INR 1.05 (0.87-1.13); PROTHROMBIN TIME 10.9 SECS (9.5-12.7)
[2017-11-07 16:39] LABS: ALANINE AMINOTRANSFERASE 17 U/L (12-78); ALBUMIN 2.8 g/dL (3.4-5.0); ALKALINE PHOSPHATASE 43 U/L (46-116); ASPARTATE AMINOTRANSFERASE 20 U/L (15-37); BILIRUBIN,DIRECT 0.1 mg/dL (0.0-0.2); BILIRUBIN,TOTAL 0.3 mg/dL (0.2-1.0); TOTAL PROTEIN, SERUM 7.1 g/dL (6.4-8.2)
[2017-11-07 16:41] LABS: TROPONIN I 0.082 ng/mL (0.00-0.056)
--- NOTE | 2017-11-07 17:47 | NUR ---
URINE SAMPLE COLLECTED AND SENT TO LAB
[2017-11-07 17:50] LABS: APPEARANCE,URINE Clear (CLEAR); BILIRUBIN,URINE Negative (NEGATIVE); BLOOD, URINE Trace-lysed Ery/uL (NEGATIVE); COLOR,URINE Yellow (YELLOW); KETONES,URINE Negative (NEGATIVE); LEUKOCYTE ESTERASE ,URINE Negative (NEGATIVE); NITRITE, URINE Negative (NEGATIVE); PROTEIN,URINE Negative (NEGATIVE); UGLUCOSE Negative (NEGATIVE); UROBILINOGEN,URINE 0.2 EU/dL (0.2)
[2017-11-07 17:57] LABS: BACTERIA,URINE Moderate /HPF (None Seen); SQUAMOUS EPITHELIAL CELL,UR Few /HPF (None Seen)
--- NOTE | 2017-11-07 18:20 | NUR ---
DR MAYFIELD SPOKE WITH [facility] STAFF TO TELL THEM THAT PT IS GOING BACK AND GREENSKEEPER LABORER IS TAKING HIM BACK BY PRIVATE CAR
--- NOTE | 2017-11-07 18:22 | NUR ---
IV removed. Catheter intact and site benign. Pressure and 4x4 applied to site. No bleeding noted.Patient discharged to home in stable condition. Written and verbal after care instructions given. Patient verbalizes understanding of instruction.
[2017-11-07 18:30] VITALS: BP 124/80
== END 2017-11-07 18:38 | disposition home or self-care (01) ==
LOC: ER 14:53
DX: R50.9 Fever, unspecified (principal); I10 Essential (primary) hypertension; F03.90 Unspecified dementia, unspecified severity, without behavioral disturbance, psychotic disturbance, mood disturbance, and anxiety; E78.5 Hyperlipidemia, unspecified; K21.9 Gastro-esophageal reflux disease without esophagitis; E87.6 Hypokalemia; E87.0 Hyperosmolality and hypernatremia; I70.90 Unspecified atherosclerosis; Z79.82 Long term (current) use of aspirin
CPT/HCPCS: 36415; 71010; 80048; 80076; 81001; 83605; 84484; 85025; 85730; 87040 ×2; 87086; 87804; 93005; 96360; 99285; A4606; J7030; 81000-TC; 87400; Z7610

== ENCOUNTER 2017-11-08 12:35 | Emergency (ER) | payer MEDICARE, OTHER ==
[~2017-11-08] VITALS: Ht 175.3 cm; Wt 90.7 kg
[2017-11-08 12:39] VITALS: BP 116/77
[2017-11-08 13:56] LABS: APPEARANCE,URINE Clear (CLEAR); BILIRUBIN,URINE Negative (NEGATIVE); BLOOD, URINE Trace-lysed Ery/uL (NEGATIVE); COLOR,URINE Yellow (YELLOW); KETONES,URINE Negative (NEGATIVE); LEUKOCYTE ESTERASE ,URINE Negative (NEGATIVE); NITRITE, URINE Negative (NEGATIVE); PROTEIN,URINE Negative (NEGATIVE); UGLUCOSE Negative (NEGATIVE); UROBILINOGEN,URINE 0.2 EU/dL (0.2)
[2017-11-08 14:03] LABS: BACTERIA,URINE Rare /HPF (None Seen); RBC,URINE 0-2 /HPF (0-2); SQUAMOUS EPITHELIAL CELL,UR Rare /HPF (None Seen); WBC,URINE 0-2 /HPF (0-3)
--- NOTE | 2017-11-08 14:43 | NUR ---
CALLED FOR ABULANCE TRANSPORT. ETA 15 MINUTES
== END 2017-11-08 15:15 | disposition home or self-care (01) ==
LOC: ER 12:36
DX: R50.9 Fever, unspecified (principal); R05 Cough; R09.81 Nasal congestion; F03.90 Unspecified dementia, unspecified severity, without behavioral disturbance, psychotic disturbance, mood disturbance, and anxiety; I10 Essential (primary) hypertension; E87.6 Hypokalemia; E87.0 Hyperosmolality and hypernatremia; E78.5 Hyperlipidemia, unspecified; K21.9 Gastro-esophageal reflux disease without esophagitis; Z79.82 Long term (current) use of aspirin
CPT/HCPCS: 71010; 81001; 87086; 87804; 99285; A4606; 81000-TC; 87400; Z7610

== ENCOUNTER 2017-12-02 16:03 | Inpatient (IN) | payer MEDICARE, OTHER ==
[~2017-12-02] VITALS: Ht 175.3 cm; Wt 68.0 kg
[~2017-12-02 16:03] MED LIST changes: -MAGN400O6 GT; +MAGN400O6 PO
--- NOTE | 2017-12-02 16:14 | NUR ---
PT NAVEEN FROM [facility]. PER REPORT, FAILURE TO THRIVE. NOT FEEDING. PT IS AAOX2. GOWNED AND PLACED ON MONITOR. STABLE VITALS. AWAITING MD VALLECILLO.
--- NOTE | 2017-12-02 16:16 | NUR ---
DR BOSCH AT BEDSIDE FOR EVAL.
[2017-12-02] MEDS ORDERED: IV NS 0.9% 1,000 ML BAG IV ONE (16:30)
[2017-12-02 16:31] LABS: BASOPHILS # (AUTO) 0.2 /CMM (0.0-0.2); BASOPHILS % (AUTO) 1.4 % (0.0-2.0); EOSINOPHILS % (AUTO) 0.3 % (0.0-6.0); HEMATOCRIT 38 % (39-51); LYMPHOCYTES # (AUTO) 0.8 /CMM (0.8-4.8); LYMPHOCYTES % (AUTO) 6.6 % (20.0-44.0); MEAN CORPUSCULAR HEMOGLOBIN 32 PG (26.0-33.0); MEAN CORPUSCULAR HGB CONC 34 g/dl (31.0-36.0); MEAN CORPUSCULAR VOLUME 93 fL (80-96); MONOCYTES # (AUTO) 0.8 /CMM (0.1-1.30); MONOCYTES % (AUTO) 6.2 % (2.0-12.0); NEUTROPHILS # (AUTO) 10.5 /CMM (1.8-8.9); NEUTROPHILS % (AUTO) 85.5 % (43.0-81.0); PLATELET COUNT (AUTO) 393 /CMM (150-450); RDW COEFFICIENT OF VARIATION 12.6 (11.5-15.0); RED BLOOD CELL COUNT(AUTO) 4.12 MIL/uL (4.5-6.0); WHITE BLOOD COUNT (AUTO) 12.3 K/uL (4.3-11.0)
--- NOTE | 2017-12-02 16:43 | NUR ---
PT TO RADIOLOGY FOR HEAD CT SCAN VIA [facility].
--- NOTE | 2017-12-02 16:46 | NUR ---
Note roshni in EDM - 12/02/17 at 1830 by IDA PT NAVEEN FROM [facility]. PER REPORT, FAILURE TO THRIVE. NOT FEEDING. PT IS AAOX2. GOWNED AND PLACED ON MONITOR. STABLE VITALS. AWAITING MD VALLECILLO.
[2017-12-02 16:48] LABS: INR 1.07 (0.87-1.13)
[2017-12-02 16:56] LABS: ALANINE AMINOTRANSFERASE 16 U/L (12-78); ALBUMIN 3.1 g/dL (3.4-5.0); ALKALINE PHOSPHATASE 75 U/L (46-116); ASPARTATE AMINOTRANSFERASE 15 U/L (15-37); BILIRUBIN,TOTAL 0.2 mg/dL (0.2-1.0); CALCIUM, SERUM 9.9 mg/dL (8.5-10.1); CARBON DIOXIDE 16 mmol/L (21-32); CREATININE 4.8 mg/dL (0.6-1.3); GLUCOSE 125 mg/dL (74-106); TOTAL PROTEIN, SERUM 9.3 g/dL (6.4-8.2)
[2017-12-02] MEDS ORDERED: BENA5TAB2 PO (16:59)
[2017-12-02] MEDS ORDERED: FURO40TA5 PO (16:59)
[2017-12-02] MEDS ORDERED: POTA20TA83 PO (16:59)
[2017-12-02] MEDS ORDERED: SPIR25TA PO (16:59)
[2017-12-02] MEDS ORDERED: ACET-868 PO (16:59)
[2017-12-02] MEDS ORDERED: NA P133E RC (16:59)
[2017-12-02] MEDS ORDERED: MAG30ORA PO (16:59)
[2017-12-02 17:07] LABS: CHLORIDE 107 mmol/L (98-107); SODIUM SERUM 134 mmol/L (136-145)
[2017-12-02 17:08] LABS: POTASSIUM 7.6 mmol/L (3.5-5.1)
[2017-12-02 17:09] LABS: UREA NITROGEN, BLOOD 118 mg/dL (7-18)
[2017-12-02] MEDS ORDERED: SODIUM BICARBONATE SYR 50 MEQ/50 ML DISP.SYRIN ONE (17:14)
[2017-12-02] MEDS ORDERED: CALCIUM CHLORIDE 1,000 MG/10 ML DISP.SYRIN ONE (17:14)
[2017-12-02] MEDS ORDERED: INSULIN REGULAR, HUMAN 100 UNIT/ML 10 ML VIAL ONE (17:15)
[2017-12-02] MEDS ORDERED: ALBUTEROL FS 2.5 MG/3 ML VIAL.NEB ONE (17:15)
[2017-12-02] MEDS ORDERED: DEXTROSE 50%-WATER 50 ML DISP.SYRIN ONE (17:15)
[2017-12-02] MEDS ORDERED: DEXTROSE 50%-WATER 50 ML DISP.SYRIN IV ONE (17:30)
[2017-12-02] MEDS ORDERED: INSULIN REGULAR, HUMAN 100 UNIT/ML 10 ML VIAL IV ONE (17:30)
[2017-12-02] MEDS ORDERED: SODIUM BICARBONATE SYR 50 MEQ/50 ML DISP.SYRIN IV ONE (17:30)
[2017-12-02] MEDS ORDERED: SODIUM POLYSTYRENE SULFONATE 15 G/60 ML BOTTLE PO ONE (17:30)
[2017-12-02] MEDS ORDERED: CALCIUM CHLORIDE 1,000 MG/10 ML DISP.SYRIN IV ONE (17:30)
[2017-12-02] MEDS ORDERED: ALBUTEROL FS 2.5 MG/3 ML VIAL.NEB NEB ONE (17:30)
[2017-12-02 17:32] LABS: APPEARANCE,URINE CLOUDY (CLEAR); BILIRUBIN,URINE NEGATIVE (NEGATIVE); BLOOD, URINE 3+ Ery/uL (NEGATIVE); COLOR,URINE YELLOW (YELLOW); KETONES,URINE NEGATIVE (NEGATIVE); LEUKOCYTE ESTERASE ,URINE 3+ (NEGATIVE); NITRITE, URINE NEGATIVE (NEGATIVE); PROTEIN,URINE 2+ mg/dl (NEGATIVE); UGLUCOSE NEGATIVE (NEGATIVE); UROBILINOGEN,URINE 0.2 EU/dL (0.2)
--- NOTE | 2017-12-02 17:39 | NUR ---
PAGED ESTATE PLANNING DIRECTOR PANEL
[2017-12-02] MEDS ORDERED: IV NS 0.9% 1,000 ML IV PRN (17:51)
[2017-12-02 17:52] LABS: WBC,URINE TOO NUMEROUS TO COUN /HPF (0-3)
[2017-12-02 17:53] LABS: BACTERIA,URINE Few /HPF (None Seen); SQUAMOUS EPITHELIAL CELL,UR Few /HPF (None Seen)
[2017-12-02] MEDS ORDERED: SODIUM POLYSTYRENE SULFONATE 15 G/60 ML BOTTLE ONE (17:59)
[2017-12-02] MEDS ORDERED: MAGNESIUM HYDROXIDE 30 ML UDC PO PRN ×2 (18:00→19:00)
[2017-12-02] MEDS ORDERED: ZOLPIDEM TARTRATE 5 MG TABLET PO PRN ×2 (18:00→19:00)
[2017-12-02] MEDS ORDERED: ALBUTEROL FS 2.5 MG/0.5 ML VIAL.NEB NEB PRN ×2 (18:00→19:00)
[2017-12-02] MEDS ORDERED: MAG HYDROX/AL HYDROX/SIMETH 30 ML UDC PO PRN ×2 (18:00→19:00)
[2017-12-02] MEDS ORDERED: ONDANSETRON HCL/PF 4 MG/2 ML VIAL IVP PRN ×2 (18:00→19:00)
[2017-12-02] MEDS ORDERED: HYDROCODONE/APAP 5/325MG 1 EACH TABLET PO PRN ×2 (18:00→19:00)
[2017-12-02] MEDS ORDERED: PIPERACILLIN /TAZOBACTAM 3.375 G in IV D5W 50 ML IV ONE (18:00)
[2017-12-02] MEDS ORDERED: Z GUARD REMEDY 2 OZ OINT TP PRN ×2 (18:00→19:00)
[2017-12-02] MEDS ORDERED: ACETAMINOPHEN 325 MG TABLET PO PRN ×2 (18:00→19:00)
--- NOTE | 2017-12-02 18:26 | NUR ---
REPORT GIVEN TO LILIANE. PT AWAITING TRANSFER TO FLOOR.
[2017-12-02] MEDS ORDERED: hydrALAZINE HCL IV 20 MG VIAL IV PRN ×2 (18:30→19:00)
[2017-12-02 19:06] LABS: URINE SODIUM, RANDOM 64 mmol/l (40-220)
--- NOTE | 2017-12-02 19:45 | NUR ---
RN ADMITTING NOTES RECEIVED REPORT FROM EBONI RNLILIANE. Pt CAME UP TO FLOOR AROUND 1830 BEFORE CHANGE OF SHIFT. FOUND Pt ASLEEP IN BED. RESPIRATIONS EVEN AND UNLABORED. EASILY AWAKENED. Pt IS A/OX1, CONFUSED. ON TELE MONITOR. NEWBERRY CATHETER IN PLACE, DRAINING BLOOD. NO IV ACCESS AT THIS TIME. Pt PULLED OUT IV AND IS ALSO ATTEMPTING TO PULL OUT HIS NEWBERRY CATHETER. Pt IS ALSO COMBATIVE. WILL SPEAK WITH ONCALL TO GET SOFT RESTRAINT ORDER SINCE A SITTER IS UNAVAILABLE AT THIS TIME. SAFETY MEASURES IN PLACE. BED LOW, LOCKED, HOB ELEVATED, SIDE RAILS UP, CALL LIGHT AND BEDSIDE TABLE WITHIN REACH. WILL CONTINUE TO MONITOR Pt THROUGHOUT THE NIGHT FOR SAFETY.
[2017-12-02 19:50] LABS: OSMOLALITY,URINE 373 mOS/kg (340-1090)
[2017-12-02 20:00] VITALS: BP 114/63
--- NOTE | 2017-12-02 20:50 | NUR ---
RN NOTES SPOKE TO GASTON CLARK ON THE PHONE. OK TO PUT IN SOFT RESTRAINT ORDER DUE TO Pt PULLING OUT IV LINE AND ATTEMPTING TO PULL OUT HIS NEWBERRY CATHETER WELL.
[2017-12-02] MEDS ORDERED: hydrALAZINE HCL 10 MG TABLET PO SCH (21:00)
[2017-12-02] MEDS ORDERED: ISOSORBIDE DINITRATE (10MG) 10 MG TABLET PO SCH (21:00)
[2017-12-02] MEDS: hydrALAZINE HCL 10 MG TABLET PO SCH (21:00)
[2017-12-02 22:00] VITALS: BP 114/63
[2017-12-02] MEDS ORDERED: QUETIAPINE FUMARATE 25 MG TABLET PO SCH (22:00)
[2017-12-02] MEDS ORDERED: ATORVASTATIN 40 MG TABLET PO SCH ×2 (22:00)
[2017-12-02] MEDS ORDERED: DONEPEZIL 5 MG TABLET PO SCH (22:00)
--- NOTE | 2017-12-02 22:00 | NUR ---
NEW IV ACCESS STARTED ON RHAND #22G WITH IVF NS @75ML/HR.
[2017-12-02] MEDS ORDERED: ISOSORBIDE DINITRATE (10MG) 10 MG TABLET ONE (22:25)
[2017-12-02] MEDS ORDERED: ATORVASTATIN 40 MG TABLET ONE (22:26)
[2017-12-02] MEDS ORDERED: QUETIAPINE FUMARATE 25 MG TABLET ONE (22:27)
[2017-12-02] MEDS: ISOSORBIDE DINITRATE (10MG) 10 MG TABLET PO SCH (22:44)
[2017-12-02] MEDS: QUETIAPINE FUMARATE 25 MG TABLET PO SCH (22:45)
[2017-12-02] MEDS ORDERED: DONEPEZIL 5 MG TABLET ONE (22:51)
[2017-12-02] MEDS: DONEPEZIL 5 MG TABLET PO SCH (22:52)
[2017-12-03] MEDS: IV NS 0.9% 1,000 ML IV PRN ×2 (00:09→12:32)
[2017-12-03 04:00] VITALS: BP 99/58
[2017-12-03] MEDS: ISOSORBIDE DINITRATE (10MG) 10 MG TABLET PO SCH ×3 (05:00→21:00)
[2017-12-03] MEDS: hydrALAZINE HCL 10 MG TABLET PO SCH ×3 (05:00→21:00)
--- NOTE | 2017-12-03 06:40 | NUR ---
RN CLOSING NOTES NO SIGNIFICANT CHANGES IN Pt's CONDITION. STABLE AT THIS TIME. ALL OTHER NEEDS MET AND ATTENDED TO. SAFETY MEASURES IN PLACE. TELE READING SR 93. WILL ENDORSE TO DAYSHIFT RN FOR Pt's DOM.
--- NOTE | 2017-12-03 06:41 | NUR ---
RN NOTES CURRENTLY HAS SOFT WRIST RESTRAINTS OFF. Pt IS CALM AND NOT PULLING ON IV OR NEWBERRY.
[2017-12-03 06:50] LABS: BASOPHILS % (AUTO) 0.1 % (0.0-2.0); HEMATOCRIT 36 % (39-51); HEMOGLOBIN 12.4 g/dL (13.5-17.5); LYMPHOCYTES # (AUTO) 0.8 /CMM (0.8-4.8); LYMPHOCYTES % (AUTO) 4.2 % (20.0-44.0); MEAN CORPUSCULAR HEMOGLOBIN 32 PG (26.0-33.0); MEAN CORPUSCULAR HGB CONC 34 g/dl (31.0-36.0); MEAN CORPUSCULAR VOLUME 94 fL (80-96); MONOCYTES # (AUTO) 0.9 /CMM (0.1-1.30); MONOCYTES % (AUTO) 4.7 % (2.0-12.0); NEUTROPHILS # (AUTO) 18.2 /CMM (1.8-8.9); PLATELET COUNT (AUTO) 381 /CMM (150-450); RDW COEFFICIENT OF VARIATION 13.2 (11.5-15.0); RED BLOOD CELL COUNT(AUTO) 3.85 MIL/uL (4.5-6.0)
[2017-12-03 07:07] LABS: CALCIUM, SERUM 9.8 mg/dL (8.5-10.1); CARBON DIOXIDE 15 mmol/L (21-32); CHLORIDE 113 mmol/L (98-107); CREATININE 4.4 mg/dL (0.6-1.3); GLUCOSE 126 mg/dL (74-106); MAGNESIUM 2.3 mg/dL (1.8-2.4); PHOSPHORUS 6.3 mg/dL (2.5-4.9); POTASSIUM 5.5 mmol/L (3.5-5.1); SODIUM SERUM 144 mmol/L (136-145)
[2017-12-03 07:09] LABS: UREA NITROGEN, BLOOD 112 mg/dL (7-18)
[2017-12-03 07:13] LABS: CHOLESTEROL 85 mg/dL (<200); HDL CHOLESTEROL 30 mg/dL (40-60); LDL 40 mg/dL (0-99); PREALBUMIN 21.1 MG/DL (18.0-35.7); TRIGLYCERIDES 121 mg/dL (30-150)
[2017-12-03 08:00] VITALS: BP 102/64
--- NOTE | 2017-12-03 08:00 | NUR ---
RN NOTES RECEIVED PATIENT IN THE BED, NO ACUTE RESPIRATORY DISTRESS, CONFUSED, HARD TO REDIRECT, PATIENT GET IRRITABLE, IV LINE ON RIGHT HAND INTACT NS AT 75 ML/HR,, HOLD BP MEDICATION BECAUSE LOW BP, PATIENT HAS A F/C INTACT, DRAINING DARK RED COLOR, MD GROVES AWARE OF, PATIENT TOTAL CARE, CALL LIGHT WITHIN TO REACH, SAFETY PRECAUTION MAINTAINED ALL THE TIME.
[2017-12-03] MEDS ORDERED: ASPIRIN 81 MG TAB.CHEW PO SCH ×2 (09:00)
[2017-12-03] MEDS: CARVEDILOL 6.25 MG TABLET PO SCH ×2 (09:00→17:00)
[2017-12-03] MEDS ORDERED: CARVEDILOL 6.25 MG TABLET PO SCH (09:00)
[2017-12-03 09:09] LABS: LYMPHOCYTES % (MANUAL) 4 % (16-48); MONOCYTES % (MANUAL) 1 % (0-11.0); NEUTROPHILS % (MANUAL) 95 (42-76)
--- NOTE | 2017-12-03 10:00 | NUR ---
rn notes' patient contact isolation at this time, ordered skin scraping.
[2017-12-03 12:00] VITALS: BP 114/57
[2017-12-03] MEDS: CEFTRIAXONE 1 G in IV D5W 50 ML IV SCH (12:11)
--- NOTE | 2017-12-03 12:13 | NUR ---
WOUND CARE CONSULT: PT PRESENTS WITH RASH/BUMPY SKIN WITH MULTIPLE TINY SCABS, PRESENT ON ADMISSION. DEFER TO MD FOR SKIN CONDITION. RECOMMENDATIONS MADE FOR SKIN PROTECTION. ALL SKIN PROTECTION MEASURES IN PLACE. DISCUSSED WITH NURSING STAFF. WILL SEE PRN. HALL IN AGREEMENT WITH PLAN OF CARE. Addendum: 12/03/17 at 1215 by SHAWNEE MCKEON WNDNU Amended: Links added.
[2017-12-03] MEDS: LINEZOLID RTU BAG 600 MG in PREMIX 1 EA IV SCH ×2 (12:22→21:25)
--- NOTE | 2017-12-03 14:00 | NUR ---
rn notes patient refused skin scraping per infection control stephanie ferreira, continued monitoring.
[2017-12-03 16:00] VITALS: BP 101/75
[2017-12-03] MEDS ORDERED: LORAZEPAM INJ 2 MG/ML VIAL IV ONE ×2 (17:30→18:00)
--- NOTE | 2017-12-03 18:19 | NUR ---
COULD NOT PERFORM ULTRASOUND AT 1809. THE NURSE STATED THAT THE PATIENT IS NOT READY TO BE SCANNED BECAUSE THE PATIENT IS NOT CALM AND NEED MEDICATION PRIOR TO EXAM TO GET CALM(HE HAS TAKEN OUT HIS IV)
--- NOTE | 2017-12-03 19:03 | NUR ---
rn notes administered ativan 0.5 mg/ml iv push for anxiety as prescribe x1, v/s taken bp- 101/75, p-77, call light within to reach, safety precaution maintained all the time.
[2017-12-03 19:28] LABS: HEMOGLOBIN 12.1 g/dL (13.5-17.5)
--- NOTE | 2017-12-03 19:30 | NUR ---
RN NOTES PATIENT IN THE BED MEDICATION WERE ADMINISTERED FOR ANXIETY EFFECTIVE, NO ACUTE DISTRESS, , PATIENT GATING US OF KIDNEY BEDSIDE AT THIS TIME, F/C STILL DRAINING BLOOD IN THE URINE, OUTPUT WAS 630ML, CALL LIGHT WITHIN TO REACH, ENDORSED ONCOMING NURSE FOR DOM.
[2017-12-03 19:34] LABS: HEMOGLOBIN 12.3 g/dL (13.5-17.5)
--- NOTE | 2017-12-03 19:35 | NUR ---
RN OPENING NOTES RECEIVED REPORT FROM WICHOCODARYN RNELSY. FOUND Pt ASLEEP IN BED. RESPIRATIONS EVEN AND UNLABORED. NO S/S OF ACUTE DISTRESS OR SOB NOTED. IV ACCESS ON RFA #22G, IVF NS @75ML/HR. ULTRASOUND BEING DONE AT BEDSIDE. Pt IS CURRENTLY ON ISO FOR R/O SCABIES, SCRAPING TEST WILL BE DONE TOMORROW. SAFETY MEASURES IN PLACE. BED LOW, LOCKED, HOB ELEVATED, SIDE RAILS UP, CALL LIGHT AND BEDSIDE TABLE WITHIN REACH. WILL CONTINUE TO MONITOR Pt THROUGHOUT THE NIGHT FOR SAFETY.
[2017-12-03 20:00] VITALS: BP 102/66
[2017-12-03] MEDS: DONEPEZIL 5 MG TABLET PO SCH (21:35)
[2017-12-03] MEDS: QUETIAPINE FUMARATE 25 MG TABLET PO SCH (21:36)
--- NOTE | 2017-12-04 06:05 | NUR ---
RN NOTES Pt WAS MORE COOPERATIVE. TOOK HIS 0500 AM MEDS.
[2017-12-04] MEDS: ISOSORBIDE DINITRATE (10MG) 10 MG TABLET PO SCH ×3 (06:15→21:00)
[2017-12-04] MEDS: hydrALAZINE HCL 10 MG TABLET PO SCH ×3 (06:17→21:00)
[2017-12-04 06:27] LABS: BASOPHILS % (AUTO) 0.4 % (0.0-2.0); EOSINOPHILS # (AUTO) 0.1 /CMM (0.0-0.7); HEMATOCRIT 34 % (39-51); HEMOGLOBIN 11.6 g/dL (13.5-17.5); LYMPHOCYTES % (AUTO) 7.6 % (20.0-44.0); MEAN CORPUSCULAR HEMOGLOBIN 32 PG (26.0-33.0); MEAN CORPUSCULAR HGB CONC 34 g/dl (31.0-36.0); MEAN CORPUSCULAR VOLUME 95 fL (80-96); MONOCYTES # (AUTO) 0.7 /CMM (0.1-1.30); MONOCYTES % (AUTO) 5.5 % (2.0-12.0); NEUTROPHILS # (AUTO) 11.5 /CMM (1.8-8.9); NEUTROPHILS % (AUTO) 85.5 % (43.0-81.0); PLATELET COUNT (AUTO) 339 /CMM (150-450); RDW COEFFICIENT OF VARIATION 13.6 (11.5-15.0); RED BLOOD CELL COUNT(AUTO) 3.57 MIL/uL (4.5-6.0); WHITE BLOOD COUNT (AUTO) 13.5 K/uL (4.3-11.0)
--- NOTE | 2017-12-04 06:45 | NUR ---
RN CLOSING NOTES NO SIGNIFICANT CHANGES IN Pt's CONDITION. NO S/S OF ACUTE DISTRESS OR SOB NOTED DURING THE NIGHT. RESPIRATIONS EVEN AND UNLABORED. ALL NEEDS MET AND ATTENDED TO. SAFETY MEASURES IN PLACE. WILL ENDORSE TO DAYSHIFT RN FOR Pt's DOM.
[2017-12-04 06:49] LABS: CARBON DIOXIDE 19 mmol/L (21-32); CHLORIDE 116 mmol/L (98-107); CREATININE 3.7 mg/dL (0.6-1.3); GLUCOSE 106 mg/dL (74-106); MAGNESIUM 2.2 mg/dL (1.8-2.4); PHOSPHORUS 4.8 mg/dL (2.5-4.9); POTASSIUM 4.3 mmol/L (3.5-5.1); SODIUM SERUM 147 mmol/L (136-145)
[2017-12-04 06:50] LABS: UREA NITROGEN, BLOOD 102 mg/dL (7-18)
[2017-12-04 08:00] VITALS: BP 162/62
--- NOTE | 2017-12-04 08:00 | NUR ---
MS RN AM NOTES PT ASLEEP IN BED. RESPIRATIONS EVEN AND UNLABORED. NO S/S OF ACUTE DISTRESS OR SOB NOTED. IV ACCESS ON RFA #22G, IVF NS @75ML/HR. Pt IS CURRENTLY ON ISO FOR R/O SCABIES, SCRAPING TO BE DONE BY SHEREEN,INFECTIOUS DISEASE RN.AWAITING FOR CECIL REGAN.PT SCRATCHES HIS SKIN OFTEN.NO CREAM CAN BE ORDERED TILL SCRAPING IS DONE.SAFETY MEASURES IN PLACE. BED LOW, LOCKED, HOB ELEVATED, SIDE RAILS UP, CALL LIGHT AND BEDSIDE TABLE WITHIN REACH. WILL CONTINUE TO MONITOR
[2017-12-04] MEDS: CARVEDILOL 6.25 MG TABLET PO SCH ×2 (08:58→17:00)
[2017-12-04] MEDS: LINEZOLID RTU BAG 600 MG in PREMIX 1 EA IV SCH (08:58)
--- NOTE | 2017-12-04 10:30 | NUR ---
AMBULATED WITH P.T. WITH FWW MIN ASSIST.TOLERATING WELL.
[2017-12-04] MEDS: CEFTRIAXONE 1 G in IV D5W 50 ML IV SCH (12:44)
--- NOTE | 2017-12-04 14:54 | NUR ---
SKIN SCRAPING DONE BY CECIL REGAN INFECTIOUS CONTROL AT BEDSIDE.PT TOLERATED WELL.
[2017-12-04 16:00] VITALS: BP 107/64
[2017-12-04] MEDS ORDERED: PERMETHRIN 5% CRM 60 GM TUBE TP ONE (16:00)
[2017-12-04] MEDS: IV NS 0.9% 1,000 ML IV PRN (17:28)
--- NOTE | 2017-12-04 18:55 | NUR ---
MED SURG 3 RN CLOSING NOTES PT IN BED RESTING. VITAL SIGNS STABLE, BREATHING COMFORTABLY AND UNLABORED ON ROOM AIR. NO S/S OR COMPLAINTS OF PAIN OR ACUTE DISTRESS. IV ACCESS ON RFA #22G, IVF NS @75ML/HR INFUSING WELL. Pt IS STILL ON ISOLATION FOR R/O SCABIES, SCRAPING DONE BY SHEREEN INFECTIOUS DISEASE RN. SAFETY MEASURES IN PLACE. BED IN LOW POSITION WITH HOB ELEVATED AND SIDE RAILS UP X 2. BEDSIDE TABLE AND CALL LIGHT WITHIN REACH.
[2017-12-04 20:00] VITALS: BP 102/54
--- NOTE | 2017-12-04 20:00 | NUR ---
MS RN OPENING NOTES: RECEIVED PATIENT IN BED, ASLEEP, EASILY AROUSABLE. PATIENT APPEARS EASILY AGITATED, RECENTLY PULLED HIS IV DURING THE CHANGE OF SHIFT. NEWBERRY CATHETER IN PLACE DRAINING URINE WITH BLOOD. REINSERTED IVF INTO THE LEFT HAND WITH IV CATH G#24- WITH GOOD BACKFLOW. ADMINISTERED ORDERED MEDICATIONS. BP MEDS ON HOLD PATIENT HAS LOW BP THIS TIME. 102/54 HR 91. BED IN LOCKED AND LOW POSITION. BILATERAL SOFT RESTRAINTS ARE OFF THE PATIENT THIS TIME. REALITY ORIENTATION DONE. WILL CONTINUE TO MONITOR PATIENT.
[2017-12-04] MEDS: DONEPEZIL 5 MG TABLET PO SCH (21:05)
[2017-12-04] MEDS: QUETIAPINE FUMARATE 25 MG TABLET PO SCH (21:05)
[2017-12-05] MEDS ORDERED: PERMETHRIN 5% CRM 60 GM TUBE TP ONE (00:04)
--- NOTE | 2017-12-05 00:52 | NUR ---
MS RN CLOSING NOTES: PATIENT IN BED ASLEEP. ENDORSED PATIENT TO CECIL YANEZ FOR CONTINUITY OF CARE.
--- NOTE | 2017-12-05 01:00 | NUR ---
RN NOTES PT RESTING IN BED. NO COMPLAINTS OF PAIN AT THIS TIME. NEWBERRY CATHETER IN PLACE AND DRAINING WELL. PT HAD A RFA #22 IV, IV HAS BECOME INFILTRATED, WILL REINSERT NEW IV. PER [facility] ELIMITE CREAM AVAILABLE, WILL APPLY. SAFETY PRECAUTIONS IN PLACE. BED IN LOW LOCKED POSITION, X3SIDE RAILS UP. WILL CONTINUE TO MONITOR.
[2017-12-05] MEDS: hydrALAZINE HCL 10 MG TABLET PO SCH ×3 (04:39→21:00)
[2017-12-05] MEDS: ISOSORBIDE DINITRATE (10MG) 10 MG TABLET PO SCH ×3 (04:40→22:39)
--- NOTE | 2017-12-05 06:42 | NUR ---
RN CLOSING NOTES PT RESTING IN BED. NO COMPLAINTS OF PAIN AT THIS TIME. PT HAS BILATERAL SOFT WRIST RESTRAINTS. PT SCRATCHING SKIN AND PULLING OUT IV LINES. NEWBERRY CATHETER IN PLACE AND DRAINING WELL. PT HAS RIGHT UPPER ARM #22 IV, INTACT AND PATENT. SAFETY PRECAUTIONS IN PLACE. BED IN LOW LOCKED POSITION, X3SIDE RAILS UP. WILL ENDORSE TO DAY SHIFT NURSE FOR CONTINUITY OF CARE.
--- NOTE | 2017-12-05 07:20 | NUR ---
RN NOTES PATIENT ALERT AND ORIENTED X1, CONFUSED, ON BILATERAL SOFT WRIST RESTRAINTS, NO S/SX OF ACUTE DISTRESS AT THIS TIME. TURNED AND REPOSITIONED, KEPT COMFORTABLE, NO S/SX OF PAIN OR DISCOMFORT, CALL LIGHT WITHIN REACH, WILL CONTINUE TO MONITOR.
[2017-12-05 07:26] LABS: BASOPHILS % (AUTO) 0.3 % (0.0-2.0); EOSINOPHILS # (AUTO) 0.3 /CMM (0.0-0.7); EOSINOPHILS % (AUTO) 3.3 % (0.0-6.0); HEMATOCRIT 28 % (39-51); HEMOGLOBIN 9.7 g/dL (13.5-17.5); LYMPHOCYTES % (AUTO) 9.7 % (20.0-44.0); MEAN CORPUSCULAR HEMOGLOBIN 33 PG (26.0-33.0); MEAN CORPUSCULAR HGB CONC 34 g/dl (31.0-36.0); MEAN CORPUSCULAR VOLUME 95 fL (80-96); MONOCYTES # (AUTO) 0.7 /CMM (0.1-1.30); MONOCYTES % (AUTO) 6.6 % (2.0-12.0); NEUTROPHILS # (AUTO) 8.4 /CMM (1.8-8.9); NEUTROPHILS % (AUTO) 80.1 % (43.0-81.0); PLATELET COUNT (AUTO) 261 /CMM (150-450); RDW COEFFICIENT OF VARIATION 13.6 (11.5-15.0); RED BLOOD CELL COUNT(AUTO) 2.98 MIL/uL (4.5-6.0); WHITE BLOOD COUNT (AUTO) 10.5 K/uL (4.3-11.0)
[2017-12-05 07:38] LABS: ALANINE AMINOTRANSFERASE 15 U/L (12-78); ALBUMIN 2.2 g/dL (3.4-5.0); ALKALINE PHOSPHATASE 51 U/L (46-116); ASPARTATE AMINOTRANSFERASE 14 U/L (15-37); BILIRUBIN,TOTAL 0.2 mg/dL (0.2-1.0); CALCIUM, SERUM 8.5 mg/dL (8.5-10.1); CARBON DIOXIDE 19 mmol/L (21-32); CHLORIDE 112 mmol/L (98-107); CREATININE 3.1 mg/dL (0.6-1.3); GLUCOSE 89 mg/dL (74-106); MAGNESIUM 1.9 mg/dL (1.8-2.4); POTASSIUM 3.8 mmol/L (3.5-5.1); SODIUM SERUM 142 mmol/L (136-145); TOTAL PROTEIN, SERUM 6.6 g/dL (6.4-8.2); UREA NITROGEN, BLOOD 75 mg/dL (7-18)
[2017-12-05 08:00] VITALS: BP 117/63
[2017-12-05] MEDS: CARVEDILOL 6.25 MG TABLET PO SCH ×3 (09:00→18:05)
--- NOTE | 2017-12-05 10:00 | NUR ---
RN NOTES PATIENT REFUSED MEDICATIONS, REPOSITIONING AND ADL CARE, EXPLAINED RISKS AND BENEFITS STILL REFUSED, PER PATIENT "JUST LEAVE ME ALONE, I WANT TO SLEEP." DR. JETT MADE AWARE. CALL LIGHT WITHIN REACH, WILL CONTINUE TO MONITOR. CALLED PHARMACY RE: [facility], PER PHARMACY WILL SEND SOON.
[2017-12-05] MEDS: LINEZOLID RTU BAG 600 MG in PREMIX 1 EA IV SCH ×2 (10:59→22:17)
--- NOTE | 2017-12-05 14:25 | NUR ---
RN NOTES PATIENT FOUND SITTING AT EDGE OF BED, EATING LUNCH. ABLE TO REMOVE BILATERAL SOFT WRIST RESTRAINTS, REMOVED PIV ON SUJATHA. RE-EDUCATED, BUT PATIENT IS NON-COOPERATIVE AND NON-COMPLIANT. OFFERED TO RE-INSERT PIV. BUT PATIENT REFUSED AT THIS TIME. WILL OFFER AGAIN LATER. EXPLAINED RISKS AND BENEFITS STILL REFUSED.
[2017-12-05] MEDS: IV NS 0.9% 1,000 ML IV PRN (15:16)
[2017-12-05 16:00] VITALS: BP 145/70
--- NOTE | 2017-12-05 18:59 | NUR ---
RN NOTES PATIENT ALERT AND ORIENTED X1-2, CALM AND COOPERATIVE AT THIS TIME, CAME TO VISIT. BILATERAL SOFT WRIST RESTRAINTS IN PLACED, NO S/SX OF SKIN BREAKDOWN. PATIENT WAS TREATED WITH ELIMITE CREAM TODAY, WILL ENDORSE TO POLITICAL SCIENCE PROFESSOR TO GIVE PATIENT A BED BATH. PATIENT'S PIV ON RFA #22, PATENT AND FLUSHES WELL, IVF INFUSING AND TOLERATING WELL. PATIENT'S PATHOLOGY CAME BACK POSITIVE FROM SCABIES, INFECTION CONTROL AWARE. PATIENT CONTINUES TO BE ON CONTACT ISOLATION FOR SCABIES. PATIENT IS STILL NOTED WITH HEMATURIA, SKIN CARE RENDERED. ADL CARE RENDERED, NEEDS ATTENDED AND ANTICIPATED, CALL LIGHT WITHIN REACH, WILL ENDORSE TO POLITICAL SCIENCE PROFESSOR FOR DOM.
--- NOTE | 2017-12-05 19:10 | NUR ---
RN NOTES RECEIVED PATIENT IN BED, AWAKE, CONFUSED AND ATTEMPTING TO PULL OUT IV. FREQUENT REMINDER AND DIVERSION DONE. PT STILL NOTED WITH ON AND OFF EPISODE. BILATERAL SOFT WRIST RESTRAINTS IN PLACED, NO S/SX OF SKIN BREAKDOWN. IV SITE ON RFA #22, INTACT AND PATENT, IVF INFUSING WELL. PATIENT ON CONTACT ISOLATION FOR SCABIES. PATIENT IS STILL NOTED WITH HEMATURIA, GOOD SKIN CARE RENDERED. ALL NEEDS ATTENDED AND MET. SAFETY PRECAUTIONS OBSERVED. CALL LIGHT WITHIN REACH, WILL CONT TO MONITOR.
[2017-12-05 20:00] VITALS: BP_SYST 129; BP_DIAS 67; BP_DIAS 69
--- NOTE | 2017-12-05 20:30 | NUR ---
PT PULLED OUT IV ON RFA , APPLIED PRESSURE, NO BLEEDING AT THIS TIME. INSERTED IV ON RIGHT HAND G #20 X 1 ATTEMPT WITH GOOD VENOUS RETURN, SECURED PROPERLY. IVF INFUSING WELL AT THIS TIME. WILL CONT TO MONITOR.
--- NOTE | 2017-12-05 21:30 | NUR ---
PT PULLED OUT IV ON RIGHT HAND , PRESSURE APPLIED, NO BLEEDING NOTED. INSERTED IV ON RFA G # 20 X 1 ATTEMPT, WITH GOOD VENOUS RETURN. IVF INFUSING WELL. NO S/S OF INFILTRATION NOTED. WILL CONT TO MONITOR. SAFETY PRECAUTIONS OBSERVED. CALL LIGHT WITHIN REACH.
[2017-12-05] MEDS: DONEPEZIL 5 MG TABLET PO SCH (22:18)
[2017-12-05] MEDS: QUETIAPINE FUMARATE 25 MG TABLET PO SCH (22:18)
--- NOTE | 2017-12-05 22:41 | NUR ---
PT REFUSED HYDRALAZINE , RISK AND BENEFITS EXPLAINED. PT STILL REFUSED. WILL CONT TO MONITOR. BP : 129/67, HR : 74 AT THIS TIME.
[2017-12-06] MEDS: ISOSORBIDE DINITRATE (10MG) 10 MG TABLET PO SCH ×3 (05:00→21:00)
[2017-12-06] MEDS: hydrALAZINE HCL 10 MG TABLET PO SCH ×3 (05:00→21:00)
--- NOTE | 2017-12-06 06:32 | NUR ---
RN NOTES PATIENT IN BED, RESTING COMFORTABLY AT THIS TIME, STILL NOTED WITH ON AND OFF EPISODE OF ATTEMPTING TO PULL OUT IV, AGITATION, SCREAMING. FREQUENT REMINDER AND DIVERSION DONE. BILATERAL SOFT WRIST RESTRAINTS IN PLACED, RELEASED PER HOSPITAL PROTOCOL., FREQUENT SKIN CHECK DONE. NO S/SX OF SKIN BREAKDOWN. IV SITE ON RFA #20, INTACT AND PATENT, IVF INFUSING WELL. PATIENT ON CONTACT ISOLATION FOR SCABIES. FC IS INTACT AND PATENT, STILL NOTED WITH HEMATURIA, GOOD SKIN CARE RENDERED. ALL NEEDS ATTENDED AND MET. SAFETY PRECAUTIONS OBSERVED. CALL LIGHT WITHIN REACH, WILL ENDORSE TO NEXT SHIFT FOR DOM.
[2017-12-06 08:00] VITALS: BP 109/77
--- NOTE | 2017-12-06 08:15 | NUR ---
MS RN RECEIVED ON BED, AWAKE,ALERT,ORIENTED X2,NOT IN ANY FORM OF DISTRESS, RESPIRATIONS EVEN AND UNLABORED,NO SOB NOTED. LUNGS ARE DIMINISHED, ABDOMEN SOFT,POSITIVE BOWEL SOUNDS, DENIES PAIN AT THIS TIME, RASHES ALL OVER, POSITIVE FOR SCABIES.
[2017-12-06] MEDS: CARVEDILOL 6.25 MG TABLET PO SCH ×2 (09:33→18:05)
[2017-12-06] MEDS: LINEZOLID RTU BAG 600 MG in PREMIX 1 EA IV SCH ×2 (09:33→20:59)
--- NOTE | 2017-12-06 11:00 | NUR ---
MS RN WAS SEEN BY DR. JOHNIE Mckeon/ ORDERS MADE AND CARRIED OUT.
[2017-12-06 12:21] LABS: BASOPHILS % (AUTO) 0.1 % (0.0-2.0); EOSINOPHILS # (AUTO) 0.6 /CMM (0.0-0.7); EOSINOPHILS % (AUTO) 4.6 % (0.0-6.0); HEMATOCRIT 27 % (39-51); HEMOGLOBIN 9.4 g/dL (13.5-17.5); LYMPHOCYTES # (AUTO) 0.7 /CMM (0.8-4.8); MEAN CORPUSCULAR HEMOGLOBIN 32 PG (26.0-33.0); MEAN CORPUSCULAR HGB CONC 34 g/dl (31.0-36.0); MEAN CORPUSCULAR VOLUME 94 fL (80-96); MONOCYTES # (AUTO) 0.7 /CMM (0.1-1.30); MONOCYTES % (AUTO) 5.9 % (2.0-12.0); NEUTROPHILS # (AUTO) 10.1 /CMM (1.8-8.9); NEUTROPHILS % (AUTO) 83.4 % (43.0-81.0); PLATELET COUNT (AUTO) 234 /CMM (150-450); RDW COEFFICIENT OF VARIATION 13.6 (11.5-15.0); WHITE BLOOD COUNT (AUTO) 12.1 K/uL (4.3-11.0)
[2017-12-06 12:31] LABS: CALCIUM, SERUM 7.8 mg/dL (8.5-10.1); CARBON DIOXIDE 20 mmol/L (21-32); CHLORIDE 111 mmol/L (98-107); CREATININE 2.5 mg/dL (0.6-1.3); GLUCOSE 157 mg/dL (74-106); POTASSIUM 3.7 mmol/L (3.5-5.1); SODIUM SERUM 142 mmol/L (136-145); UREA NITROGEN, BLOOD 63 mg/dL (7-18)
[2017-12-06 16:00] VITALS: BP 127/63
--- NOTE | 2017-12-06 18:00 | NUR ---
MS RN NEW IV SITE AT LEFT FOREARM.
[2017-12-06] MEDS: IV NS 0.9% 1,000 ML IV PRN (18:20)
--- NOTE | 2017-12-06 19:00 | NUR ---
MS RN NO CHANGE OF CONDITION, ALL NEEDS ATTENDED.
--- NOTE | 2017-12-06 19:45 | NUR ---
RN OPENING NOTES PATIENT IS SLEEPING IN BED, EASY TO AROUSE, ALERT AND ORIENTED X1. VS STABLE. NO PAIN OR DISCOMFORT NOTED AT THIS TIME. NO SOB. RESPIRATIONS EVEN AND UNLABORED. IV ACCESS ON LEFT FA PATENT AND INTACT, INFUSING NS AT 75 ML/HR, NO REDNESS OR INFILTRATION NOTED. BED IN LOW AND LOCKED POSITION, SIDE RAILSX2. CALL LIGHT WITHIN EASY REACH. WILL CONTINUE TO MONITOR AND ASSESS DURING THE SHIFT.
--- NOTE | 2017-12-06 21:00 | NUR ---
RN NOTES PATIENT REFUSED VS AND EVENING BP MEDICATIONS
[2017-12-06] MEDS: QUETIAPINE FUMARATE 25 MG TABLET PO SCH (23:51)
[2017-12-06] MEDS: DONEPEZIL 5 MG TABLET PO SCH (23:51)
[2017-12-07] MEDS: ISOSORBIDE DINITRATE (10MG) 10 MG TABLET PO SCH ×2 (05:00→13:00)
[2017-12-07] MEDS: hydrALAZINE HCL 10 MG TABLET PO SCH ×2 (05:00→13:00)
--- NOTE | 2017-12-07 05:22 | NUR ---
RN NOTES PATIENT REFUSED MORNING BP MEDICATIONS
--- NOTE | 2017-12-07 06:47 | NUR ---
RN NOTES PATIENT REFUSED BLOOD DRAW
--- NOTE | 2017-12-07 06:48 | NUR ---
RN CLOSING NOTES PATIENT IS SLEEPING IN BED, EASY TO AROUSE, ALERT AND ORIENTED X1. VS STABLE. NO SOB. RESPIRATIONS EVEN AND UNLABORED. IV ACCESS ON LEFT FA PATENT AND INTACT, NO REDNESS OR INFILTRATION NOTED. ALL NEEDS ARE MET AND MEDICATIONS GIVEN PER MD ORDER. BED IN LOW AND LOCKED POSITION, SIDE RAILSX2. CALL LIGHT WITHIN EASY REACH. WILL ENDORSE TO RN DAY SHIFT FOR DOM.
--- NOTE | 2017-12-07 07:46 | NUR ---
MS RN OPENING NOTES RECEIVED PATIENT IN STABLE CONDITION. IN NO APPARENT DISTRESS. BEDSIDE RAILS ARE UP X2. BED IS LOCKED AND LOWERED. CALL LIGHT IS WITHIN REACH. WILL CONTINUE TO MONITOR.
[2017-12-07 08:00] VITALS: BP 120/56
[2017-12-07] MEDS: LINEZOLID RTU BAG 600 MG in PREMIX 1 EA IV SCH (09:00)
--- NOTE | 2017-12-07 09:30 | NUR ---
CALLED PHARMACY ABOUT [facility]YVOX. PHARMACY WILL PROVIDE. ANTIBIOTIC IS NOT IN THE PT'S CASSETTE.
[2017-12-07] MEDS ORDERED: HYDR-4075 PO (10:07)
[2017-12-07] MEDS: CARVEDILOL 6.25 MG TABLET PO SCH (10:22)
[2017-12-07 13:00] VITALS: BP 120/56
[2017-12-07 13:04] LABS: BASOPHILS % (AUTO) 0.1 % (0.0-2.0); EOSINOPHILS # (AUTO) 0.6 /CMM (0.0-0.7); EOSINOPHILS % (AUTO) 5.1 % (0.0-6.0); HEMATOCRIT 28 % (39-51); HEMOGLOBIN 9.8 g/dL (13.5-17.5); LYMPHOCYTES # (AUTO) 0.7 /CMM (0.8-4.8); LYMPHOCYTES % (AUTO) 6.2 % (20.0-44.0); MEAN CORPUSCULAR HEMOGLOBIN 32 PG (26.0-33.0); MEAN CORPUSCULAR HGB CONC 34 g/dl (31.0-36.0); MEAN CORPUSCULAR VOLUME 94 fL (80-96); MONOCYTES # (AUTO) 0.6 /CMM (0.1-1.30); MONOCYTES % (AUTO) 5.8 % (2.0-12.0); NEUTROPHILS % (AUTO) 82.8 % (43.0-81.0); PLATELET COUNT (AUTO) 227 /CMM (150-450); RDW COEFFICIENT OF VARIATION 13.8 (11.5-15.0); RED BLOOD CELL COUNT(AUTO) 3.01 MIL/uL (4.5-6.0); WHITE BLOOD COUNT (AUTO) 10.9 K/uL (4.3-11.0)
--- NOTE | 2017-12-07 14:30 | NUR ---
PATIENT DISCHARGED IN STABLE CONDITION. IN NO APPARENT DISTRESS. VITAL SIGNS ARE STABLE. ID BAND WAS REMOVED. ALL BELONGINGS WITH PATIENT. IV REMOVED. PATIENT TRANSFERRED TO SNF BY EMERGENCY MEDICAL TEAM.
[2017-12-07 17:22] LABS: CALCIUM, SERUM 7.9 mg/dL (8.5-10.1); CARBON DIOXIDE 20 mmol/L (21-32); CHLORIDE 115 mmol/L (98-107); CREATININE 2.7 mg/dL (0.6-1.3); GLUCOSE 156 mg/dL (74-106); POTASSIUM 4.1 mmol/L (3.5-5.1); SODIUM SERUM 145 mmol/L (136-145); UREA NITROGEN, BLOOD 58 mg/dL (7-18)
== END 2017-12-07 15:23 | DRG 280 ==
LOC: ER 16:08 → TELE 19:18 → MED 12-03 12:18
PROVIDERS: ADMIT Internal Medicine; ATTEND Internal Medicine
DX: I21.A1 Myocardial infarction type 2 (principal); N17.0 Acute kidney failure with tubular necrosis; G93.40 Encephalopathy, unspecified; E87.2 Acidosis; E87.1 Hypo-osmolality and hyponatremia; B86 Scabies; I13.0 Hypertensive heart and chronic kidney disease with heart failure and stage 1 through stage 4 chronic kidney disease, or unspecified chronic kidney disease; I50.20 Unspecified systolic (congestive) heart failure; I69.354 Hemiplegia and hemiparesis following cerebral infarction affecting left non-dominant side; Z68.1 Body mass index [BMI] 19.9 or less, adult; N13.30 Unspecified hydronephrosis; N30.91 Cystitis, unspecified with hematuria; I11.0 Hypertensive heart disease with heart failure; F03.90 Unspecified dementia, unspecified severity, without behavioral disturbance, psychotic disturbance, mood disturbance, and anxiety; J44.9 Chronic obstructive pulmonary disease, unspecified; K21.9 Gastro-esophageal reflux disease without esophagitis; E78.5 Hyperlipidemia, unspecified; R26.2 Difficulty in walking, not elsewhere classified; Z79.899 Other long term (current) drug therapy; Z79.82 Long term (current) use of aspirin; N18.3 Chronic kidney disease, stage 3 (moderate); E87.5 Hyperkalemia; I27.20 Pulmonary hypertension, unspecified; R31.0 Gross hematuria; Z87.891 Personal history of nicotine dependence; Z87.440 Personal history of urinary (tract) infections; N28.1 Cyst of kidney, acquired; R62.7 Adult failure to thrive; E86.9 Volume depletion, unspecified
CPT/HCPCS: 36415; 70450-TC; 71045-TC; 76770-TC; 80048-TC; 80053-TC; 80061-TC; 80076-TC; 81000-TC; 82570-TC; 83605-TC; 83735-TC; 83880; 83935-TC; 84100-TC; 84134-TC; 84300-TC; 84484-TC; 85025-TC; 85027-TC; 85730-TC; 87040-TC; 87081-TC; 87086-TC; 87400; 93307-TC; A4216; A4606; J0696; J1815; J2020; J2060; J2543; J3490; J7030; J7060; Z7610

== ENCOUNTER 2019-07-27 23:53 | Inpatient (IN) | payer MEDICARE, OTHER ==
[~2019-07-27] VITALS: Ht 182.9 cm; Wt 67.6 kg
[~2019-07-27 23:53] MED LIST changes: +ACET-868 PO; -ALLA266C2 TP; -ENOX40DI SQ; +HYDR-4075 PO; +HYDR-4384 PO; -HYDR-552 PO; -LORA-258 PO; +MAG30ORA PO; +NA P133E RC; +POTA20TA83 PO; +SPIR25TA PO; -TOBR5DRO12 EACHEYE
--- NOTE | 2019-07-27 23:58 | NUR ---
PT BIB86 FROM [facility]. PT WAS SENT FOR ABNORMAL LABS, K 6.5, BUN 115, WBC 13, PER FACILITY. PT ABLE TO VERBALIZE NEEDS. PT AOX1. NAD NOTED. RESP EVEN AND UNLABORED. PT ON MONITOR IN BED 4. WILL CONTINUE TO MONITOR.
[2019-07-28] VITALS (8 sets, daily range): BP systolic 92–135; BP diastolic 61–89
--- NOTE | 2019-07-28 00:25 | NUR ---
BLOOD DRAWN AND GIVEN TO LAB
--- NOTE | 2019-07-28 00:27 | NUR ---
RADIOLOGY AT BEDSIDE FOR XRAY
[2019-07-28 00:29] LABS: BASOPHILS % (AUTO) 0.2 % (0.0-2.0); EOSINOPHILS % (AUTO) 0.3 % (0.0-6.0); HEMATOCRIT 45 % (39-51); HEMOGLOBIN 14.8 g/dL (13.5-17.5); LYMPHOCYTES # (AUTO) 1.2 /CMM (0.8-4.8); LYMPHOCYTES % (AUTO) 9.1 % (20.0-44.0); MEAN CORPUSCULAR HGB CONC 33 g/dl (31.0-36.0); MEAN CORPUSCULAR VOLUME 98 fL (80-96); MONOCYTES # (AUTO) 0.6 /CMM (0.1-1.30); MONOCYTES % (AUTO) 4.5 % (2.0-12.0); NEUTROPHILS # (AUTO) 11.5 /CMM (1.8-8.9); NEUTROPHILS % (AUTO) 85.9 % (43.0-81.0); PLATELET COUNT (AUTO) 328 /CMM (150-450); RED BLOOD CELL COUNT(AUTO) 4.59 MIL/uL (4.5-6.0); WHITE BLOOD COUNT (AUTO) 13.4 K/uL (4.3-11.0)
[2019-07-28 00:49] LABS: ALANINE AMINOTRANSFERASE 40 U/L (12-78); ALBUMIN 2.8 g/dL (3.4-5.0); ALKALINE PHOSPHATASE 63 U/L (46-116); ASPARTATE AMINOTRANSFERASE 21 U/L (15-37); B-TYPE NATRIURETIC PEPTIDE 4782 PG/ML (0-125); BILIRUBIN,DIRECT 0.1 mg/dL (0.0-0.2); BILIRUBIN,TOTAL 0.5 mg/dL (0.2-1.0); CALCIUM, SERUM 9.5 mg/dL (8.5-10.1); CARBON DIOXIDE 20 mmol/L (21-32); CHLORIDE 108 mmol/L (98-107); GLUCOSE 124 mg/dL (74-106); SODIUM SERUM 142 mmol/L (136-145); TOTAL PROTEIN, SERUM 9.8 g/dL (6.4-8.2)
[2019-07-28 00:50] LABS: POTASSIUM 6.4 mmol/L (3.5-5.1); UREA NITROGEN, BLOOD 113 mg/dL (7-18)
--- NOTE | 2019-07-28 00:52 | NUR ---
PAGECole RED DR. FOR DR TO DR RIZO
[2019-07-28] MEDS ORDERED: INSULIN REGULAR, HUMAN 100 UNIT/ML 10 ML VIAL IV ONE (01:00)
[2019-07-28] MEDS ORDERED: CALCIUM CHLORIDE 1,000 MG/10 ML DISP.SYRIN IV ONE (01:00)
[2019-07-28] MEDS ORDERED: DEXTROSE 50%-WATER 50 ML DISP.SYRIN IV ONE (01:00)
[2019-07-28] MEDS ORDERED: SODIUM BICARBONATE SYR 50 MEQ/50 ML DISP.SYRIN IV ONE (01:00)
[2019-07-28] MEDS ORDERED: CALCIUM CHLORIDE 1,000 MG/10 ML DISP.SYRIN ONE (01:07)
[2019-07-28] MEDS ORDERED: DEXTROSE 50%-WATER 50 ML DISP.SYRIN ONE (01:07)
[2019-07-28] MEDS ORDERED: SODIUM BICARBONATE SYR 50 MEQ/50 ML DISP.SYRIN ONE (01:07)
[2019-07-28] MEDS ORDERED: INSULIN REGULAR, HUMAN 100 UNIT/ML 10 ML VIAL ONE (01:08)
--- NOTE | 2019-07-28 01:12 | NUR ---
CALLED [facility] FOR (DR. HURLEY) WAS CALLED
--- NOTE | 2019-07-28 01:14 | NUR ---
DR. HURLEY SPEAKING TO PT REGARDING PLAN OF CARE.
--- NOTE | 2019-07-28 01:19 | NUR ---
CALLED RN SUP FOR TELE BED.
[2019-07-28] MEDS ORDERED: SPIR25TA PO (01:21)
[2019-07-28] MEDS ORDERED: CARV6.25 PO (01:21)
[2019-07-28] MEDS ORDERED: ASPI-1169 PO (01:21)
[2019-07-28] MEDS ORDERED: DONE10TA11 PO (01:21)
[2019-07-28] MEDS ORDERED: QUET50TA PO (01:21)
[2019-07-28] MEDS ORDERED: LATA2.5D2 EACHEYE (01:21)
[2019-07-28] MEDS ORDERED: POTA20TA83 PO (01:21)
[2019-07-28] MEDS ORDERED: MEMA10TA PO (01:21)
[2019-07-28] MEDS ORDERED: DOCU-141 PO (01:21)
[2019-07-28] MEDS ORDERED: FAMO-131 PO (01:21)
[2019-07-28] MEDS ORDERED: ATOR20TA PO (01:21)
[2019-07-28] MEDS ORDERED: DIVA500T2 GT (01:21)
[2019-07-28] MEDS ORDERED: MAG HYDROX/AL HYDROX/SIMETH 30 ML UDC PO PRN (01:30)
[2019-07-28] MEDS ORDERED: HYDROCODONE/APAP 5/325MG 1 EACH TABLET PO PRN (01:30)
[2019-07-28] MEDS ORDERED: Z GUARD REMEDY 2 OZ OINT TP PRN (01:30)
[2019-07-28] MEDS ORDERED: ZOLPIDEM TARTRATE 5 MG TABLET PO PRN (01:30)
[2019-07-28] MEDS ORDERED: ACETAMINOPHEN 325 MG TABLET PO PRN (01:30)
[2019-07-28] MEDS ORDERED: MAGNESIUM HYDROXIDE 30 ML UDC PO PRN (01:30)
[2019-07-28] MEDS ORDERED: ONDANSETRON HCL/PF 4 MG/2 ML VIAL IVP PRN (01:30)
--- NOTE | 2019-07-28 01:41 | NUR ---
pt assigned to [facility] [phone]
--- NOTE | 2019-07-28 01:47 | NUR ---
report given to CECIL MCCARTY for continuity of care
--- NOTE | 2019-07-28 03:15 | NUR ---
PT WAS TRANSFERED TO THIRD FLOOR UNDER ACLS
--- NOTE | 2019-07-28 03:20 | NUR ---
FIGHT MANAGER NOTES PATIENT ARRIVED ON THE UNIT AT 0250 VIA GURNEY. PATIENT A/O X 1, PATIENT ONLY ABLE TO ANSWER WITH HIS NAME WHEN ASKED. PATIENT DOES NOT COMMUNICATE, NONINTERACTIVE AND NONCONVERSANT WHEN SPOKEN TO. UNABLE TO GET INFORMATION FROM PATIENT. VITAL SIGNS STABLE. ON ROOM AIR, TOLERATING WELL. NO SIGNS OF CARDIAC OR RESPIRATORY DISTRESS. CONNECTED TO TELE MONITOR, READS SINUS 90S, NO SIGNS OF SHORTNESS OF BREATH. IV SITE LEFT AC #18G, INTACT AND PATENT, FLUSHED. PATIENT HAS WEAKNESS. NO SIGNS OF FACIAL GRIMACING INDICATING PAIN OR DISCOMFORT. SAFETY MEASURES IN PLACE, ASPIRATION PRECAUTION EMPHASIZE, CALL LIGHT WITHIN REACH, BED LOCKED, BED LOWEST POSITION, SIDE RAILS UP X2. SKIN ASSESSMENT INITIATED, NO OPEN SKIN ISSUE EXCEPT A RECTAL AREA PROLAPSE, PHOTO TAKEN FOR DOCUMENTATION, ALL NEEDS ANTICIPATED, WILL CONTINUE TO MONITOR ACCORDINGLY.
[2019-07-28 07:22] LABS: EOSINOPHILS % (AUTO) 0.1 % (0.0-6.0); HEMATOCRIT 43 % (39-51); HEMOGLOBIN 14.1 g/dL (13.5-17.5); LYMPHOCYTES % (AUTO) 7.4 % (20.0-44.0); MEAN CORPUSCULAR HGB CONC 33 g/dl (31.0-36.0); MEAN CORPUSCULAR VOLUME 98 fL (80-96); MONOCYTES # (AUTO) 0.8 /CMM (0.1-1.30); MONOCYTES % (AUTO) 6.4 % (2.0-12.0); NEUTROPHILS # (AUTO) 11.3 /CMM (1.8-8.9); NEUTROPHILS % (AUTO) 86.1 % (43.0-81.0); PLATELET COUNT (AUTO) 294 /CMM (150-450); RED BLOOD CELL COUNT(AUTO) 4.36 MIL/uL (4.5-6.0); WHITE BLOOD COUNT (AUTO) 13.2 K/uL (4.3-11.0)
--- NOTE | 2019-07-28 07:28 | NUR ---
RN NOTES ALL NEEDS ATTENDED AND MET ABLE TO REST AND SLEPT AT INTERVALS, ENDORSED TO AM NURSE FOR CONTINUITY OF CARE.SAFETY MEASURES IN PLACE.
--- NOTE | 2019-07-28 07:36 | NUR ---
CABIN OUTFITTER OPENING NOTES RECEIVED PT AWAKE IN BED IN NO ACUTE SIGN OF DISTRESS. A/O X2. CONFUSED BUT RESPONDS TO SIMPLE QUESTIONS, DENIES PAIN OR ANY DISCOMFORTS AT THIS TIME. ON ROOM AIR, BREATHING EVEN AND UNLABORED. TELE-MONITORING SHOWS SINUS TACH WITH HR ON THE 90'S, NO C/O CARDIAC DISTRESS VOICED. IV SL ON LAC G#18 INTACT, PATENT AND FLUSHES WELL. SAFETY MEASURES IN PLACE. BED IN LOW LOCKED POSITION WITH UPPER RAILS UP. CALL LIGHT WITHIN REACH. WILL CONTINUE TO MONITOR PT ACCORDINGLY
[2019-07-28 07:46] LABS: CALCIUM, SERUM 10.2 mg/dL (8.5-10.1); CARBON DIOXIDE 20 mmol/L (21-32); CHLORIDE 113 mmol/L (98-107); CREATININE 3.9 mg/dL (0.6-1.3); GLUCOSE 109 mg/dL (74-106); SODIUM SERUM 146 mmol/L (136-145)
[2019-07-28 07:49] LABS: UREA NITROGEN, BLOOD 115 mg/dL (7-18)
--- NOTE | 2019-07-28 09:29 | NUR ---
RN NOTES PT REMAINS WITH HIGH LEVEL POTASSIUM 6.0, BUN [address] NEAL MADE AWARE WITH ORDER TO GIVE KAYEXALATE 60MG PO. WILL CARRY OUT ORDER AND CONTINUE TO MONITOR PT.
[2019-07-28] MEDS ORDERED: SODIUM POLYSTYRENE SULFONATE 15 G/60 ML BOTTLE PO ONE (10:00)
[2019-07-28] MEDS ORDERED: IV NS 0.9% 500 ML IV ONE (10:30)
[2019-07-28] MEDS: IV NS 0.9% 1,000 ML IV PRN (12:34)
[2019-07-28] MEDS: CEFTRIAXONE 1 G in IV D5W 50 ML IV SCH (12:39)
[2019-07-28] MEDS ORDERED: FUROSEMIDE 20 MG/2 ML VIAL IV ONE (13:30)
[2019-07-28] MEDS: MEMANTINE HCL 5 MG TABLET PO SCH (17:03)
[2019-07-28 17:19] LABS: CALCIUM, SERUM 9.6 mg/dL (8.5-10.1); CARBON DIOXIDE 22 mmol/L (21-32); CHLORIDE 113 mmol/L (98-107); GLUCOSE 140 mg/dL (74-106); POTASSIUM 5.3 mmol/L (3.5-5.1); SODIUM SERUM 146 mmol/L (136-145)
--- NOTE | 2019-07-28 17:57 | NUR ---
RN NOTES RENAL ULTRASOUND DONE. DR NEAL SAID THAT HE SAW ALREADY THE RESULTS. NO NEW ORDER MADE AT THIS TIME. WILL CONTINUE TO MONITOR
--- NOTE | 2019-07-28 18:00 | NUR ---
RN NOTES TRIED TO COLLECT URINE SPECIMEN THIS AFTERNOON USING STRAIGHT CATHETER BUT NOTED WITH RESISTANCE. PLACE CONDOM CATH BUT CAME OUT AFTER HE PEED A LOT AND UN-ABLE TO COLLECT URINE. PLACED ANOTHER CONDOM CATH AND SECURED WELL TO COLLECT URINE SPECIMEN. WILL CONTINUE TO MONITOR.
--- NOTE | 2019-07-28 18:06 | NUR ---
RN NOTES IV ACCESS ON RAC DISLODGED WITH NO BLEEDING NOTED. NEW IV ACCESS INSERTED TO RIGHT WRIST G #22 AND SECURED WELL. WILL CONTINUE TO MONITOR.
--- NOTE | 2019-07-28 18:50 | NUR ---
PRESSURE CONTROL SUPERVISOR CLOSING NOTES PT ASLEEP IN BED AT THIS TIME, EASILY AROUSABLE. HON ELEVATED. A/O X1-2. CONFUSED BUT RESPONDS TO SIMPLE COMMANDS. ON ROOM AIR, TOLERATING WELL WITH NO SOB NOTED. TELE-MONITORING SHOWS SINUS TACH WITH HR ON THE 90'S, NO C/O CARDIAC DISTRESS VOICED. IV ACCESS ON LEFT WRIST G#22 INTACT AND PATENT, IVF INFUSING ORDERED. ALL NEEDS AND CARE PROVIDED WELL. SAFETY MEASURES KEPT IN PLACE. BED IN LOW LOCKED POSITION WITH UPPER SIDE- RAILS UP. CALL LIGHT WITHIN REACH. NEEDS TO COLLECT URINE SPECIMEN. WILL ENDORSE TO CONDITIONING YARD SUPERVISOR NURSE FOR DOM
--- NOTE | 2019-07-28 19:20 | NUR ---
RN Notes Received patient asleep, easily arousable, oriented x1, confused. On room air, no sob or distress noted. Telemonitor reads sinus rhythm with heart rate at 84. Denies any pain and discomfort. IV access on left wrist patent and intact with ongoing IVF infusing well. Safety measures and fall precaution observed. Kept comfortable and attended. Will continue to monitor patient.
[2019-07-28] MEDS: hydrALAZINE HCL 10 MG TABLET PO SCH (21:00)
[2019-07-28] MEDS: DIVALPROEX SODIUM 500 MG TABLET.DR PO SCH (21:48)
[2019-07-28] MEDS: ATORVASTATIN 10 MG TABLET PO SCH (21:48)
[2019-07-28] MEDS: DONEPEZIL 5 MG TABLET PO SCH (21:48)
--- NOTE | 2019-07-28 21:48 | NUR ---
RN NOTES PATIENT SPIT OUT THE MEDICATIONS, DEPAKOTE 250 MG TAB, ARICEPT 10 MG TAB, AND LIPITOR 20 MG. RISK AND BENEFITS EXPLAINED, PATIENT IS CONFUSED AND STRONGLY REFUSED. WILL CONTINUE TO MONITOR.
[2019-07-29] VITALS: BP 100/68
[2019-07-29 04:00] VITALS: BP 100/64
[2019-07-29] MEDS: IV NS 0.9% 1,000 ML IV PRN (04:31)
[2019-07-29] MEDS: hydrALAZINE HCL 10 MG TABLET PO SCH ×3 (04:32→21:00)
--- NOTE | 2019-07-29 06:12 | NUR ---
RN Notes Patient refused his medication last night. Still confused, frequent reorientation given. Vital signs stable, afebrile. Tele monitor reads sinus rhythm with heart rate at 80's. Denies any pain, sob, nausea and vomiting or any discomfort. Cough at times, dry, non productive. Kept clean and dry. Fall precaution observed. Will continue to monitor and will endorse accordingly.
[2019-07-29 06:34] LABS: BASOPHILS % (AUTO) 0.1 % (0.0-2.0); EOSINOPHILS % (AUTO) 0.4 % (0.0-6.0); HEMATOCRIT 40 % (39-51); HEMOGLOBIN 13.1 g/dL (13.5-17.5); MEAN CORPUSCULAR HGB CONC 33 g/dl (31.0-36.0); MEAN CORPUSCULAR VOLUME 96 fL (80-96); MONOCYTES # (AUTO) 0.7 /CMM (0.1-1.30); MONOCYTES % (AUTO) 6.1 % (2.0-12.0); NEUTROPHILS # (AUTO) 9.8 /CMM (1.8-8.9); NEUTROPHILS % (AUTO) 84.4 % (43.0-81.0); PLATELET COUNT (AUTO) 269 /CMM (150-450); WHITE BLOOD COUNT (AUTO) 11.6 K/uL (4.3-11.0)
[2019-07-29 07:01] LABS: ALANINE AMINOTRANSFERASE 27 U/L (12-78); ALBUMIN 2.2 g/dL (3.4-5.0); ALKALINE PHOSPHATASE 50 U/L (46-116); ASPARTATE AMINOTRANSFERASE 19 U/L (15-37); BILIRUBIN,TOTAL 0.4 mg/dL (0.2-1.0); CALCIUM, SERUM 8.6 mg/dL (8.5-10.1); CARBON DIOXIDE 22 mmol/L (21-32); CHLORIDE 113 mmol/L (98-107); GLUCOSE 110 mg/dL (74-106); MAGNESIUM 3.7 mg/dL (1.8-2.4); PHOSPHORUS 7.3 mg/dL (2.5-4.9); POTASSIUM 4.4 mmol/L (3.5-5.1); SODIUM SERUM 149 mmol/L (136-145); TOTAL PROTEIN, SERUM 7.6 g/dL (6.4-8.2)
[2019-07-29 07:03] LABS: CREATINE KINASE, TOTAL 24 U/L (39-308); UREA NITROGEN, BLOOD 114 mg/dL (7-18)
--- NOTE | 2019-07-29 07:20 | NUR ---
RN OPENING NOTES Received patient asleep, easily arousable, oriented x1, confused. On room air, satting 96%. No sob or distress noted. Telemonitor reads sinus rhythm 80 bpm. Denies any pain and discomfort. IV access on left forearm patent and intact with ongoing IVF infusing well. Safety measures and fall precaution observed. Kept comfortable and attended. Bed in low/locked position, siderails up, bed alarm on. Will continue to monitor patient.
[2019-07-29 08:00] VITALS: BP 124/72
[2019-07-29] MEDS: DIVALPROEX SODIUM 500 MG TABLET.DR PO SCH ×2 (08:37→21:50)
[2019-07-29] MEDS: MEMANTINE HCL 5 MG TABLET PO SCH ×2 (08:38→17:14)
[2019-07-29] MEDS: IV D5/0.45 NACL 500 ML IV SCH ×3 (12:29→22:44)
[2019-07-29] MEDS: CEFTRIAXONE 1 G in IV D5W 50 ML IV SCH (12:33)
[2019-07-29 12:34] LABS: APPEARANCE,URINE TURBID (CLEAR); COLOR,URINE YELLOW (YELLOW); PH,URINE 6.5 (5.0-8.0)
[2019-07-29 12:35] LABS: BILIRUBIN,URINE NEGATIVE (NEGATIVE); BLOOD, URINE 3+ Ery/uL (NEGATIVE); PROTEIN,URINE 2+ mg/dl (NEGATIVE); UGLUCOSE NEGATIVE (NEGATIVE)
[2019-07-29 12:36] LABS: KETONES,URINE NEGATIVE (NEGATIVE); LEUKOCYTE ESTERASE ,URINE 3+ (NEGATIVE); NITRITE, URINE POSITIVE (NEGATIVE); UROBILINOGEN,URINE 0.2 EU/dL (0.2)
[2019-07-29 12:38] LABS: BACTERIA,URINE Many /HPF (None Seen); WBC,URINE TOO NUMEROUS TO COUN /HPF (0-3)
[2019-07-29 12:43] LABS: SQUAMOUS EPITHELIAL CELL,UR Few /HPF (None Seen)
[2019-07-29 13:27] LABS: EOSINOPHIL,URINE None Seen
--- NOTE | 2019-07-29 14:00 | NUR ---
rn notes: bladder scan ouput 250ml
[2019-07-29 14:34] LABS: UREA NITROGEN, BLOOD 120 mg/dL (7-18)
[2019-07-29 16:00] VITALS: BP 123/65
[2019-07-29] MEDS ORDERED: GUAIFENESIN 300 MG/15 ML UDC PO PRN (16:30)
--- NOTE | 2019-07-29 19:35 | NUR ---
RN Notes Received patient asleep, easily arousable, oriented x1, confused. On room air, no sob, not in distress or discomfort noted. IV access on left forearm patent and intact with ongoing IVF infusing well. Safety measures and fall precaution in place. Kept clean and dry. Will continue to monitor patient.
--- NOTE | 2019-07-29 19:45 | NUR ---
RN CLOSING NOTES PATIENT IN STABLE CONDITION. ALL NEEDS ATTENDED AND PROVIDED ALL DUE MEDICATION GIVEN ORDERED. TURNED AND REPOSITIONED EVERY 2 HRS NEEDED. KEPT PATIENT SAFE AND COMFORTABLE. BED IN LOW/LOCKED POSITION, SIDERAILS UP, CALL LIGHT IN REACH. ENDORSED TO CECIL CLEMENTE FOR DOM.
[2019-07-29 20:00] VITALS: BP 110/73
--- NOTE | 2019-07-29 20:15 | NUR ---
RN Notes Bladder scan done, 190 ml urine noted in the bladder. Will continue to monitor.
[2019-07-29] MEDS: ATORVASTATIN 10 MG TABLET PO SCH (21:50)
[2019-07-29] MEDS: DONEPEZIL 5 MG TABLET PO SCH (21:50)
[2019-07-29 22:00] VITALS: BP 108/77
--- NOTE | 2019-07-30 02:20 | NUR ---
RN Notes Bladder scan done, 200 ml of urine noted in the bladder. Will continue to monitor.
[2019-07-30] MEDS ORDERED: IV D5/0.45 NACL 1,000 ML IV SCH (03:00)
[2019-07-30] MEDS: hydrALAZINE HCL 10 MG TABLET PO SCH ×3 (05:00→21:18)
--- NOTE | 2019-07-30 06:05 | NUR ---
RN Notes Patient voiding well, diaper was changed x4. Bladder scan done 2x Q6H, with reading of 190ml and 200ml. Vital signs stable, afebrile. Kept patient hydrated, tolerating water PO well, denies nausea and vomiting. Kept clean and dry. Fall precaution observed. All needs attended. Will continue to monitor.
[2019-07-30 06:14] LABS: BASOPHILS % (AUTO) 0.1 % (0.0-2.0); EOSINOPHILS % (AUTO) 0.6 % (0.0-6.0); HEMATOCRIT 37 % (39-51); HEMOGLOBIN 12.3 g/dL (13.5-17.5); LYMPHOCYTES # (AUTO) 1.1 /CMM (0.8-4.8); LYMPHOCYTES % (AUTO) 10.7 % (20.0-44.0); MEAN CORPUSCULAR HGB CONC 33 g/dl (31.0-36.0); MEAN CORPUSCULAR VOLUME 98 fL (80-96); MONOCYTES # (AUTO) 0.5 /CMM (0.1-1.30); MONOCYTES % (AUTO) 4.8 % (2.0-12.0); NEUTROPHILS # (AUTO) 8.7 /CMM (1.8-8.9); NEUTROPHILS % (AUTO) 83.8 % (43.0-81.0); PLATELET COUNT (AUTO) 226 /CMM (150-450); RED BLOOD CELL COUNT(AUTO) 3.79 MIL/uL (4.5-6.0); WHITE BLOOD COUNT (AUTO) 10.4 K/uL (4.3-11.0)
[2019-07-30 06:57] LABS: CARBON DIOXIDE 23 mmol/L (21-32); CHLORIDE 111 mmol/L (98-107); CREATININE 3.1 mg/dL (0.6-1.3); GLUCOSE 140 mg/dL (74-106); MAGNESIUM 3.2 mg/dL (1.8-2.4); PHOSPHORUS 5.7 mg/dL (2.5-4.9); POTASSIUM 3.7 mmol/L (3.5-5.1); SODIUM SERUM 147 mmol/L (136-145)
[2019-07-30 06:58] LABS: UREA NITROGEN, BLOOD 94 mg/dL (7-18)
--- NOTE | 2019-07-30 07:10 | NUR ---
MS RN OPENING NOTE RECEIVED REPORT FROM NOC SHIFT NURSE. PT ASLEEP IN BED, ON ROOM AIR, SATURATING WELL, RESPIRATIONS EASY AND UNLABORED, NO SIGNS OF RESPIRATORY DISTRESS NOTED. BED IN LOW POSITION, LOCKED, CALL LIGHT WITHIN REACH.
[2019-07-30] MEDS: MEMANTINE HCL 5 MG TABLET PO SCH ×2 (08:57→17:00)
[2019-07-30] MEDS: DIVALPROEX SODIUM 500 MG TABLET.DR PO SCH ×2 (08:57→21:17)
--- NOTE | 2019-07-30 10:24 | NUR ---
MS RN NOTE RECEIVED REPORT FROM JOSEPH JACOB. PATIENT IN BED RESTING COMFORTABLY. PATIENT IN NO ACUTE DISTRESS. NO SOB NOTED. PATIENT BREATHING IS EVEN AND UNLABORED. PATIENT BED IS LOCKED AND IN LOWEST POSITION. CALL LIGHT WITHIN REACH. WILL CONTINUE TO MONITOR.
[2019-07-30 11:06] LABS: *SPE A/G RATIO 0.6 (0.7-1.7); *SPE ALBUMIN 2.4 g/dL (2.9-4.4); *SPE ALPHA-1-GLOBULIN 0.3 g/dL (0.0-0.4); *SPE ALPHA-2-GLOBULIN 1.3 g/dL (0.4-1.0); *SPE BETA GLOBULIN 1.1 g/dL (0.7-1.3); *SPE GLOBULIN, TOTAL 4.2 g/dL (2.2-3.9); *SPE M-SPIKE Not Observed g/dL (Not Observed); *SPEGAMMA GLOBULIN 1.6 g/dL (0.4-1.8)
--- NOTE | 2019-07-30 11:12 | NUR ---
MS RN NOTE SPOKE WITH DR. ALFARO, ORDERS FROM DR. ALFARO TO REINSERT NEWBERRY CATHETER. PER DR. ALFARO DUE TO URINARY OBSTRUCTION, MD WANTS TO KEEP NEWBERRY CATHETER ON PATIENT. WILL FOLLOW THROUGH WITH ORDERS. WILL CONTINUE TO MONITOR.
[2019-07-30] MEDS: CEFTRIAXONE 1 G in IV D5W 50 ML IV SCH (11:48)
--- NOTE | 2019-07-30 12:00 | NUR ---
MS RN NOTE DR. ALFARO AWARE OF CRITICAL VALUE BUN 94. TRENDING DOWNWARD. NO NEW ORDERS AT THIS TIME. WILL CONTINUE TO MONITOR.
--- NOTE | 2019-07-30 12:00 | NUR ---
MS RN NOTE PATIENT REFUSING NEWBERRY CATHETER. INFORMED PATIENT OF RISKS VS BENEFITS. EDUCATED PATIENT 3X. PATIENT CONTINUES TO REFUSE AND GETS AGITATED. PATIENT STATES AND YELLS "DONT YOU DARE PUT A NEWBERRY CATHETER IN ME". INFORMED DR. ALFARO. WILL FOLLOW UP AND CONTINUE TO MONITOR.
[2019-07-30 12:06] LABS: PTH, INTACT 66 pg/mL (15-65)
--- NOTE | 2019-07-30 15:30 | NUR ---
MS RN NOTE APPROACHED AND EDUCATED PATIENT ON NEWBERRY CATHETER NEED. EXPLAINED RISK VS BENEFITS. PATIENT CONTINUED TO REFUSE. PATIENT IS VOIDING IN DIAPER WITH 1 SATURATED DIAPER CHANGE. URINE IS CLEAR AND YELLOW. WILL CONTINUE TO MONITOR.
[2019-07-30] MEDS: IV D5/0.45 NACL 1,000 ML IV PRN (15:51)
[2019-07-30 16:00] VITALS: BP 93/60
--- NOTE | 2019-07-30 17:15 | NUR ---
MS RN NOTE PATIENT STATED YES TO ATTEMPT NEWBERRY CATHETER INSERTION. PRIOR TO INSERTION, PATIENT REFUSED AND STATED " I DONT WANT THIS ANYMORE, YOU BETTER NOT INSERT A CATHETER". PATIENT GOT AGGRESSIVE AND ATTEMPTED TO SLAP MY HAND. INFORMED DR. ALFARO. AWARE. NO NEW ORDERS AT THIS TIME.
--- NOTE | 2019-07-30 18:02 | NUR ---
MS RN NOTE PATIENT HAS HAD 3 NOTED SATURATED DIAPER CHANGES. WITH URINE OUTPUT COLOR CLEAR AND YELLOW. BLADDER SCAN SHOWED >200 CC. PATIENT STATES NO PAIN. DR. ALFARO NOTIFIED AND AWARE. CHARGE NURSE JOHANNA AWARE. NO NEW ORDERS AT THIS TIME. WILL CONTINUE TO MONITOR.
--- NOTE | 2019-07-30 18:48 | NUR ---
MS RN CLOSING NOTE PATIENT IN BED RESTING COMFORTABLE. PATIENT IN NO ACUTE DISTRESS. NO SOB NOTED. PATIENT BREATHING IS EVEN AND UNLABORED. PATIENT IN NO PAIN AT THIS TIME. PATIENT EXTREMITIES OFFLOADED ON PILLOWS MUCH PATIENT WOULD ALLOW. PATIENT CONTINUED TO REFUSE NEWBERRY CATHETER THROUGHOUT SHIFT, WITH EDUCATION OF RISKS AND BENEFITS PROVIDED. AWARE. WILL ENDORSE TO CYLINDER BATCHER TO FOLLOW UP WITH NEWBERRY CATHETER INSERTION. PATIENT KEPT CLEAN, DRY, AND COMFORTABLE THROUGHOUT SHIFT. PATIENT BED IS LOCKED AND IN LOWEST POSITION. CALL LIGHT WITHIN REACH. WILL ENDORSE CARE TO PM SHIFT FOR DOM.
[2019-07-30 20:15] VITALS: BP 118/77
[2019-07-30] MEDS: DONEPEZIL 5 MG TABLET PO SCH (21:18)
[2019-07-30] MEDS: ATORVASTATIN 10 MG TABLET PO SCH (21:18)
[2019-07-31] MEDS: hydrALAZINE HCL 10 MG TABLET PO SCH ×3 (05:00→21:20)
--- NOTE | 2019-07-31 05:00 | NUR ---
MS RN NOTES IV-HL INFILTRATED. PT REFUSED TO HAVE IV-HL REINSERTED AND REFUSED TO TAKE MEDS. EXPLAINED TO PT IMPORTANCE OF IV ACCES & MEDICATION IN HIS POC BUT PT STILL REFUSED. WILL CONTINUE TO MONITOR.
--- NOTE | 2019-07-31 06:00 | NUR ---
MS RN NOTES PT REFUSED TO HAVE BLOOD DRAWN. EXPLAINED TO PT IMPORTANCE OF BLOOD DRAW IN HIS POC BUT PT STILL REFUSED. WILL CONTINUE TO MONITOR.
--- NOTE | 2019-07-31 06:05 | NUR ---
MS RN NOTES BLADDER SCAN DONE = 0 ML
--- NOTE | 2019-07-31 06:38 | NUR ---
MS RN NOTES AWAKE & RESPONSIVE. NOT IN ANY DISTRESS. NO SOB NOTED. DENIES ANY PAIN OR DISCOMFORT AT THIS TIME. MONITORED ACCORDINGLY. CALL LIGHT WITHIN REACH. BED IN LOWEST POSITION. SR UP X 3 WITH BED ALARM ON FOR SAFETY. WILL ENDORSE TO NEXT SHIFT.
--- NOTE | 2019-07-31 07:30 | NUR ---
received patient in bed , A/O x1 , no IV assess at this time. Patient able to communicate and make needs known. Safety precautions observed and implemented. Will continue care
[2019-07-31 08:00] VITALS: BP 122/80
[2019-07-31] MEDS: MEMANTINE HCL 5 MG TABLET PO SCH ×2 (09:18→16:35)
[2019-07-31] MEDS: DIVALPROEX SODIUM 500 MG TABLET.DR PO SCH ×2 (09:18→21:20)
--- NOTE | 2019-07-31 09:57 | NUR ---
Attempt to insert an IV assess: patient refused. Risk and benefits explained. Patient refused
[2019-07-31 11:28] LABS: ALANINE AMINOTRANSFERASE 24 U/L (12-78); ALKALINE PHOSPHATASE 49 U/L (46-116); ASPARTATE AMINOTRANSFERASE 17 U/L (15-37); BILIRUBIN,TOTAL 0.3 mg/dL (0.2-1.0); CALCIUM, SERUM 7.8 mg/dL (8.5-10.1); CARBON DIOXIDE 23 mmol/L (21-32); CHLORIDE 107 mmol/L (98-107); CREATININE 2.7 mg/dL (0.6-1.3); GLUCOSE 127 mg/dL (74-106); MAGNESIUM 2.8 mg/dL (1.8-2.4); POTASSIUM 2.9 mmol/L (3.5-5.1); SODIUM SERUM 141 mmol/L (136-145); TOTAL PROTEIN, SERUM 6.8 g/dL (6.4-8.2); UREA NITROGEN, BLOOD 69 mg/dL (7-18)
[2019-07-31 11:34] LABS: BASOPHILS % (AUTO) 0.2 % (0.0-2.0); EOSINOPHILS % (AUTO) 0.7 % (0.0-6.0); HEMATOCRIT 35 % (39-51); HEMOGLOBIN 11.5 g/dL (13.5-17.5); LYMPHOCYTES % (AUTO) 7.6 % (20.0-44.0); MEAN CORPUSCULAR HGB CONC 33 g/dl (31.0-36.0); MEAN CORPUSCULAR VOLUME 97 fL (80-96); MONOCYTES # (AUTO) 0.5 /CMM (0.1-1.30); MONOCYTES % (AUTO) 3.6 % (2.0-12.0); NEUTROPHILS # (AUTO) 11.5 /CMM (1.8-8.9); NEUTROPHILS % (AUTO) 87.9 % (43.0-81.0); PLATELET COUNT (AUTO) 222 /CMM (150-450); RED BLOOD CELL COUNT(AUTO) 3.58 MIL/uL (4.5-6.0); WHITE BLOOD COUNT (AUTO) 13.1 K/uL (4.3-11.0)
[2019-07-31] MEDS ORDERED: PIPERACILLIN /TAZOBACTAM 3.375 G in IV D5W 50 ML IV SCH (12:00)
--- NOTE | 2019-07-31 12:10 | NUR ---
A new IV line inserted to the right forearm G22. Flushing well with
[2019-07-31] MEDS ORDERED: FEE PK DOSING 1 MIN EA MC ONE (12:47)
[2019-07-31] MEDS ORDERED: POTASSIUM CHLORIDE 20 MEQ TAB.PRT.SR PO ONE (13:00)
--- NOTE | 2019-07-31 13:00 | NUR ---
attempted to insert straight catheter for urine culture. Patient refused and became agitated with episodes of aggressiveness toward the staff. Will try later
[2019-07-31] MEDS ORDERED: VANCOMYCIN 1 GM in IV D5W 250 ML IV SCH (14:00)
--- NOTE | 2019-07-31 15:30 | NUR ---
Patient refused blood draw for blood culture. Risks and benefits explained, remain strongly refusing
[2019-07-31] MEDS: PIPERACILLIN /TAZOBACTAM 2.25 G in IV D5W 50 ML IV SCH (15:45)
[2019-07-31 16:00] VITALS: BP 118/73
--- NOTE | 2019-07-31 16:25 | NUR ---
F/C inserted Addendum: 07/31/19 at 1750 by HELIO MARTÍNEZ RN using sterile technic
[2019-07-31 18:07] LABS: APPEARANCE,URINE TURBID (CLEAR); BILIRUBIN,URINE NEGATIVE (NEGATIVE); BLOOD, URINE 2+ Ery/uL (NEGATIVE); COLOR,URINE YELLOW (YELLOW); KETONES,URINE NEGATIVE (NEGATIVE); LEUKOCYTE ESTERASE ,URINE 3+ (NEGATIVE); NITRITE, URINE NEGATIVE (NEGATIVE); PROTEIN,URINE 2+ mg/dl (NEGATIVE); UGLUCOSE NEGATIVE (NEGATIVE); UROBILINOGEN,URINE 0.2 EU/dL (0.2)
[2019-07-31 18:50] LABS: WBC,URINE TOO NUMEROUS TO COUN /HPF (0-3)
[2019-07-31 18:51] LABS: BACTERIA,URINE Moderate /HPF (None Seen)
--- NOTE | 2019-07-31 18:52 | NUR ---
Patient resting in bed, oriented x2. Remains stable on room air with VS within baseline. F/C in place , with output 1300ml cloudy urine with sediment. Patient started on Vancomycin. IV line to the right arm G 22 intact and patent< IV fluid running. All needs attended, patient kept clean and dry. Safety precautions in place , call light within reach. Will endorse to next shift for DOM.
[2019-07-31 18:54] LABS: SQUAMOUS EPITHELIAL CELL,UR Rare /HPF (None Seen)
[2019-07-31 20:00] VITALS: BP 143/74
[2019-07-31] MEDS: TAMSULOSIN 0.4 MG CAP.SR.24H PO SCH (21:20)
[2019-07-31] MEDS: ATORVASTATIN 10 MG TABLET PO SCH (21:21)
[2019-07-31] MEDS: DONEPEZIL 5 MG TABLET PO SCH (21:21)
[2019-07-31] MEDS: IV D5/0.45 NACL 1,000 ML IV PRN (22:54)
[2019-08-01] MEDS: PIPERACILLIN /TAZOBACTAM 2.25 G in IV D5W 50 ML IV SCH ×3 (00:16→11:16)
[2019-08-01] MEDS: hydrALAZINE HCL 10 MG TABLET PO SCH ×3 (05:29→21:45)
--- NOTE | 2019-08-01 06:10 | NUR ---
MS RN NOTES PT PULLED OUT IV-HL. PT REFUSED TO HAVE IV-HL REINSERTED. EXPLAINED TO PT IMPORTANCE OF IV ACCES IN HIS POC BUT PT STILL REFUSED. WILL CONTINUE TO MONITOR.
--- NOTE | 2019-08-01 07:00 | NUR ---
received patient in bed A/O x2. No IV assess at this time. No distress noted. breathing unlabored and even on room air
[2019-08-01 08:00] VITALS: BP 108/47
[2019-08-01] MEDS: DIVALPROEX SODIUM 500 MG TABLET.DR PO SCH ×3 (08:40→21:48)
[2019-08-01] MEDS: MEMANTINE HCL 5 MG TABLET PO SCH ×2 (08:41→16:49)
[2019-08-01 08:42] LABS: BASOPHILS % (AUTO) 0.3 % (0.0-2.0); HEMATOCRIT 36 % (39-51); HEMOGLOBIN 11.7 g/dL (13.5-17.5); LYMPHOCYTES # (AUTO) 0.8 /CMM (0.8-4.8); LYMPHOCYTES % (AUTO) 5.5 % (20.0-44.0); MEAN CORPUSCULAR HGB CONC 33 g/dl (31.0-36.0); MEAN CORPUSCULAR VOLUME 97 fL (80-96); MONOCYTES # (AUTO) 0.4 /CMM (0.1-1.30); NEUTROPHILS # (AUTO) 12.7 /CMM (1.8-8.9); NEUTROPHILS % (AUTO) 90.2 % (43.0-81.0); PLATELET COUNT (AUTO) 235 /CMM (150-450); RED BLOOD CELL COUNT(AUTO) 3.69 MIL/uL (4.5-6.0); WHITE BLOOD COUNT (AUTO) 14.1 K/uL (4.3-11.0)
[2019-08-01 08:52] LABS: CALCIUM, SERUM 8.1 mg/dL (8.5-10.1); CARBON DIOXIDE 21 mmol/L (21-32); CHLORIDE 110 mmol/L (98-107); CREATININE 2.4 mg/dL (0.6-1.3); GLUCOSE 95 mg/dL (74-106); MAGNESIUM 2.6 mg/dL (1.8-2.4); PHOSPHORUS 3.7 mg/dL (2.5-4.9); POTASSIUM 3.5 mmol/L (3.5-5.1); SODIUM SERUM 142 mmol/L (136-145); UREA NITROGEN, BLOOD 53 mg/dL (7-18)
--- NOTE | 2019-08-01 11:02 | NUR ---
A new IV sokaogon inserted to the left upper arm , g 22 flushing well.
[2019-08-01 16:00] VITALS: BP 110/65
[2019-08-01] MEDS ORDERED: LEVOFLOXACIN (500MG) 500 MG TABLET PO ONE (17:30)
--- NOTE | 2019-08-01 18:44 | NUR ---
Patient resting in bed, oriented x2. Remains stable on room air with VS within baseline. F/C in place , with output 1100ml cloudy urine with sediment. IV line to the left upper arm G 22 intact and patent< IV fluid running as ordered. All needs attended, patient kept clean and dry. Safety precautions in place , call light within reach. Will endorse to next shift for DOM.
--- NOTE | 2019-08-01 19:10 | NUR ---
MS RN NOTES RECEIVED PT IN BED AWAKE AND ABLE TO MAKE NEEDS KNOWN. PT A/O X2 WITH PERIODS OF CONFUSION. RESPIRATIONS EVEN AND UNLABORED WITH NO S/S OF ACUTE DISTRESS OR SOB NOTED. NO COMPLAINTS OF PAIN AT THIS TIME. PT WITH FC IN PLACE AND DRAINING WELL. PT WITH IV JONATHAN #22G PATENT AND INTACT INFUSING NS @125ML/HR. SAFETY MEASURES IN PLACE WITH BED IN LOWEST LOCKED POSISION WITH SIDE RAILS UP X2. CALL LIGHT WITHIN REACH. WILL CONTINUE TO MONITOR.
[2019-08-01] MEDS: TAMSULOSIN 0.4 MG CAP.SR.24H PO SCH (21:44)
[2019-08-01] MEDS: ATORVASTATIN 10 MG TABLET PO SCH (21:44)
[2019-08-01] MEDS: DONEPEZIL 5 MG TABLET PO SCH (21:44)
--- NOTE | 2019-08-01 21:45 | NUR ---
MS RN NOTES PT REFUSED DIVALPOEX MEDICATION. PT SPIT OUT MEDICATION AND STATED THAT HE DOES NOT WANT THE MEDICATION AT THIS TIME. WILL CONTINUE TO MONITOR.
[2019-08-01 21:51] VITALS: BP 128/76
[2019-08-01] MEDS: IV D5/0.45 NACL 1,000 ML IV PRN (23:32)
[2019-08-02] MEDS: hydrALAZINE HCL 10 MG TABLET PO SCH ×2 (05:55→12:53)
--- NOTE | 2019-08-02 06:46 | NUR ---
MS RN NOTES PT IN BED AWAKE AND ABLE TO MAKE NEEDS KNOWN. PT A/O X2 WITH PERIODS OF CONFUSION. RESPIRATIONS EVEN AND UNLABORED WITH NO S/S OF ACUTE DISTRESS OR SOB NOTED THROUGHOUT SHIFT. NO COMPLAINTS OF PAIN AT THIS TIME. PT WITH FC IN PLACE AND DRAINING WELL. PT KEPT CLEAN, DRY, AND COMFORTABLE. PT WITH IV JONATHAN #22G PATENT AND INTACT INFUSING NS @125ML/HR. SAFETY MEASURES IN PLACE WITH BED IN LOWEST LOCKED POSITION WITH SIDE RAILS UP X2. CALL LIGHT WITHIN REACH. WILL ENDORSE TO ONCOMING NURSE FOR DOM.
--- NOTE | 2019-08-02 06:53 | NUR ---
MS RN NOTES PT TURNED Q2 HRS THROUGHOUT SHIFT.
--- NOTE | 2019-08-02 07:34 | NUR ---
MS RN OPENING NOTE PATIENT IN BED RESTING COMFORTABLY. PATIENT BREATHING IS EVEN AND UNLABORED. PATIENT IN NO ACUTE DISTRESS. NO SOB NOTED. SAFETY PRECAUTIONS IN PLACE. PATIENT IV IS INTACT AND PATENT. NO FACIAL GRIMACING NOTED. PATIENT BED IS LOCKED AND IN LOWEST POSITION. CALL LIGHT WITHIN REACH. WILL CONTINUE TO MONITOR.
[2019-08-02 08:00] VITALS: BP 142/70
[2019-08-02 08:26] LABS: BASOPHILS % (AUTO) 0.1 % (0.0-2.0); EOSINOPHILS % (AUTO) 1.9 % (0.0-6.0); HEMATOCRIT 32 % (39-51); HEMOGLOBIN 10.4 g/dL (13.5-17.5); LYMPHOCYTES % (AUTO) 7.9 % (20.0-44.0); MEAN CORPUSCULAR HGB CONC 33 g/dl (31.0-36.0); MEAN CORPUSCULAR VOLUME 98 fL (80-96); MONOCYTES # (AUTO) 0.6 /CMM (0.1-1.30); MONOCYTES % (AUTO) 4.6 % (2.0-12.0); NEUTROPHILS # (AUTO) 10.6 /CMM (1.8-8.9); NEUTROPHILS % (AUTO) 85.5 % (43.0-81.0); PLATELET COUNT (AUTO) 200 /CMM (150-450); RED BLOOD CELL COUNT(AUTO) 3.23 MIL/uL (4.5-6.0); WHITE BLOOD COUNT (AUTO) 12.4 K/uL (4.3-11.0)
[2019-08-02] MEDS: MEMANTINE HCL 5 MG TABLET PO SCH (08:34)
[2019-08-02 08:37] LABS: CALCIUM, SERUM 7.5 mg/dL (8.5-10.1); CARBON DIOXIDE 20 mmol/L (21-32); CHLORIDE 110 mmol/L (98-107); GLUCOSE 135 mg/dL (74-106); MAGNESIUM 2.3 mg/dL (1.8-2.4); PHOSPHORUS 2.9 mg/dL (2.5-4.9); POTASSIUM 3.1 mmol/L (3.5-5.1); SODIUM SERUM 141 mmol/L (136-145); UREA NITROGEN, BLOOD 38 mg/dL (7-18)
[2019-08-02] MEDS ORDERED: DIVALPROEX SODIUM 250 MG TABLET.DR PO SCH (09:00)
[2019-08-02] MEDS ORDERED: Levofloxacin (250MG) PO (10:48)
[2019-08-02] MEDS ORDERED: TAMS-12 PO (10:48)
[2019-08-02] MEDS ORDERED: POTASSIUM CHLORIDE 20 MEQ POWDER PACKET PO ONE (11:00)
[2019-08-02 12:53] VITALS: BP 127/73
--- NOTE | 2019-08-02 14:00 | NUR ---
MS SPEECH THERAPY ASSISTANT NOTE PATIENT MEDICALLY STABLE FOR DISCHARGE. PATIENT IN NO ACUTE DISTRESS. NO SOB NOTED. PATIENT BREATHING IS EVEN AND UNLABORED. PATIENT KEPT CLEAN AND DRY THROUGHOUT SHIFT. PATIENT EXTREMITIES OFFLOADED ON PILLOWS MUCH PATIENT WOULD ALLOW. PATIENT REPOSITIONED Q2H MUCH PATIENT WOULD ALLOW. PATIENT IV REMOVED. ID BAND REMOVED. ALL NURSING NEEDS MET. PATIENT HAS ALL BELONGINGS WITH HIM. BELONGINGS LIST SIGNED BY 2 NURSES PATIENT IS UNABLE TO SIGN/ UNABLE TO COMPREHEND. DC INSTRUCTIONS PROVIDED, PATIENT IS UNABLE TO COMPREHEND. DC PACKET SIGNED BY 2 NURSES PATIENT IS UNABLE TO SIGN/ UNABLE TO COMPREHEND. PATIENT HAS NEWBERRY CATHETER IN PLACE AND PATENT. PER MD MARIA ELENA ISSA, TO KEEP NEWBERRY CATHETER IN PLACE. PATIENT GOING BACK TO [facility]. REPORT GIVEN TO FAB JACOB. PATIENT SKIN ASSESSED, NO NEW SKIN BREAKDOWN NOTED. PATIENT TRAVELED BY GURNEY TO AMBULANCE. MD AWARE OF DISCHARGE.
[2019-08-02] MEDS ORDERED: LEVOFLOXACIN (250MG) 250 MG TABLET PO SCH (18:00)
== END 2019-08-02 14:00 | DRG 725 ==
LOC: ER 23:55 → TELE 07-28 01:57 → MED 07-29 08:50
PROVIDERS: ADMIT Nurse Practitioner Acute Care; ATTEND Registered Nurse
DX: N40.0 Benign prostatic hyperplasia without lower urinary tract symptoms (principal); N17.0 Acute kidney failure with tubular necrosis; I50.32 Chronic diastolic (congestive) heart failure; I13.0 Hypertensive heart and chronic kidney disease with heart failure and stage 1 through stage 4 chronic kidney disease, or unspecified chronic kidney disease; E87.0 Hyperosmolality and hypernatremia; N39.0 Urinary tract infection, site not specified; N13.30 Unspecified hydronephrosis; N18.4 Chronic kidney disease, stage 4 (severe); N13.9 Obstructive and reflux uropathy, unspecified; E87.5 Hyperkalemia; E78.5 Hyperlipidemia, unspecified; F03.90 Unspecified dementia, unspecified severity, without behavioral disturbance, psychotic disturbance, mood disturbance, and anxiety; I25.10 Atherosclerotic heart disease of native coronary artery without angina pectoris; K21.9 Gastro-esophageal reflux disease without esophagitis; Z79.82 Long term (current) use of aspirin; E83.41 Hypermagnesemia; E83.52 Hypercalcemia; J44.9 Chronic obstructive pulmonary disease, unspecified; F29 Unspecified psychosis not due to a substance or known physiological condition; B96.1 Klebsiella pneumoniae [K. pneumoniae] as the cause of diseases classified elsewhere; D72.829 Elevated white blood cell count, unspecified; Z87.891 Personal history of nicotine dependence; I27.20 Pulmonary hypertension, unspecified; H35.30 Unspecified macular degeneration; R26.9 Unspecified abnormalities of gait and mobility; Z79.899 Other long term (current) drug therapy; Z79.51 Long term (current) use of inhaled steroids; D64.9 Anemia, unspecified; F41.9 Anxiety disorder, unspecified; F32.9 Major depressive disorder, single episode, unspecified; E86.9 Volume depletion, unspecified; E86.0 Dehydration; Z86.718 Personal history of other venous thrombosis and embolism
CPT/HCPCS: 36415; 71045-TC; 76770-TC; 80048-TC; 80053-TC; 80076-TC; 81000-TC; 82550-TC; 82570-TC; 82962-TC; 83735-TC; 83880; 83970; 84100-TC; 84155; 84155-TC; 84165; 84300-TC; 84484-TC; 85025-TC; 87040-TC; 87081-TC; 87086-TC; 87186-TC; A4216; A4349; G0378; J0696; J1815; J1940; J2543; J3370; J3490; J7030; J7040; J7042; J7060